=== PATIENT | female | born 1960 | race Caucasian/White ===

== ENCOUNTER 2018-08-19 11:53 | Inpatient (IN) | payer MEDICARE, MEDICAID ==
[2018-08-19] MEDS ORDERED: Piperacillin/Tazobactam 4.5 GM VIAL ONE (12:56)
[2018-08-19 12:59] LABS: #Lymphocytes 1.4 thou/uL (1.20-3.40); #Monocytes 0.9 thou/uL (0.11-0.59); #Neutrophils 10.9 thou/uL (1.40-6.50); %Basophils 0.2 % (0.0-1.0); %Eosinophils 0.2 % (0.0-10.0); %Lymphocytes 10.7 % (21.0-51.0); %Monocytes 6.6 % (0.0-10.0); %Neutrophils 82.3 % (42.0-75.0); Hemoglobin 14.4 g/dL (12.0-16.0); Mean Corpuscular HGB CONC 31.8 g/dL (32.0-36.0); Mean Corpuscular Hemoglobin 29.7 pg (27.0-31.0); Mean Corpuscular Volume 93.4 fL (78.0-98.0); Mean Platelet Volume 9.3 fL (7.4-10.4); Platelet Count 214 thou/uL (130-400); RBC Distribution Width 12.2 % (11.5-14.5); Red Blood Cell (RBC) Count 4.86 mill/uL (4.20-5.40); White Blood Cell (WBC) Count 13.2 thou/uL (4.8-10.8)
[2018-08-19 13:19] LABS: ALT (SGPT) 19 U/L (8-55); AST (SGOT) 34 U/L (5-34); Albumin 3.8 g/dL (3.5-5.0); Alkaline Phosphatase 126 U/L (40-150); Anion Gap 17 mmol/L (10-20); BUN (Urea Nitrogen) 14 mg/dL (9.8-20.1); Bilirubin, Total 0.7 mg/dL (0.2-1.2); Calc. Creatinine Clearance 0 mL/min (70-130); Calcium 10.1 mg/dL (7.8-10.44); Carbon Dioxide 27 mmol/L (22-29); Chloride 98 mmol/L (98-107); Estimated GFR-MDRD 84; Globulin 3.4 g/dL (2.4-3.5); Glucose 106 mg/dL (70-105); Potassium 4.3 mmol/L (3.5-5.1); Protein, Total 7.2 g/dL (6.0-8.3); Sodium 138 mmol/L (136-145)
[2018-08-19 13:40] LABS: Bilirubin Small (Negative); Blood, Urine Negative (Negative); Clarity CLOUDY (Clear); Glucose, Urine (Dipstick) Negative (Negative); Leukocyte Small (Negative); Nitrite Negative (Negative); Protein, Urine (Dipstick) 30 mg/dL (Neg-Trace); Specific Gravity, Urine 1.027 (1.002-1.036)
[2018-08-19 13:42] LABS: RBC/HPF 0-3 HPF (0-3)
[2018-08-19 13:44] LABS: Pathc Cast-AUWi Flag 10.46 (0-2.49)
[2018-08-19] MEDS ORDERED: methylPREDNISolone Sod Succ/PF 125 MG/2 ML VIAL ONE ×2 (13:46→13:58)
[2018-08-19] MEDS ORDERED: Water For Inject, Bacteriostat 30 ML ONE (13:46)
[2018-08-19 13:50] LABS: Bacteria/HPF 2+ HPF (None Seen); Hyaline Casts/LPF 4-6 HYALINE CAST LPF (0-3 Hyaline); Manual Microscopic Reviewed? No Path Casts Seen; Renal Epithelial None Seen HPF (0-3); Transitional Epithelial 0-3 HPF (0-3)
[2018-08-19] MEDS ORDERED: Zolpidem Tartrate 5 MG TAB PO PRN (14:16)
[2018-08-19] MEDS ORDERED: Ondansetron ODT 4 MG TAB PO PRN (14:16)
[2018-08-19] MEDS ORDERED: Acetaminophen 325 MG TAB PO PRN (14:16)
--- NOTE | 2018-08-19 14:26 | RAD ---
PORTABLE CHEST ONE VIEW: 08/19/2018 12:32 p.m. HISTORY: Pneumonia. Shortness of breath. Fever. FINDINGS: The heart size is normal. There is elevation of the right hemidiaphragm. Alveolar opacities in the lingula. No pneumothoraces or pleural effusions are seen. IMPRESSION: Left-sided pneumonia. POS: OFF
--- NOTE | 2018-08-19 15:16 | HP ---
PRIMARY CARE PROVIDER: Mike Espino MD [facility]. HISTORY OF PRESENT ILLNESS: The patient has been sick about 5 days, shortness of breath, severe coughing spells. Actually, she has had no fever or chills. No hemoptysis. In evaluation as an outpatient, the patient was noted to have O2 saturations in the 80s, was referred to the hospital. She was seen and treated with IV antibiotics, referred to the [facility]. PAST MEDICAL HISTORY: Her past medical history is pertinent for asthma, hypertension, and depression. 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 She subsequently had a right hemiplegia. She has had esophageal strictures, has had 5 EGDs with dilatations. She had gastric bypass in the past. CURRENT MEDICATIONS: [facility]; 1. Fluticasone nasal spray 2 sprays once a day. 2. Lisinopril 20 mg once a day. 3. ProAir HFA 90 mcg 2 puffs p.r.n. 4. Ranitidine 150 mg p.o. b.i.d. 5. Symbicort 160/4.5 two puffs b.i.d. 6. Duloxetine 60 mg at night. 7. Coenzyme Q10 daily. 8. Albuterol 2.5 mg/3 mL nebs 3 times a day p.r.n. 9. Aspirin 81 mg a day. 10. Multiple gqti-htf-mfxhera medications. ALLERGIES LISTED: Cephalosporins, fluticasone, and Sudafed. FAMILY HISTORY: Multiple members with hypertension. Her father had coronary artery disease. SOCIAL HISTORY: She is single, has a twin. Full code status. Her sister, Kristy is at the bedside, she is a responsible constitution party at this time. She has never smoked or used alcohol or illicit drug. REVIEW OF SYSTEMS: GENERAL: She gets dizzy with upward gaze. EAR, NOSE, AND THROAT: She is deaf in the left ear. No drainage from that ear. No drainage from her nose. She has had trouble swallowing in the past and has had multiple EGDs. EYES: She is blind in the right eye. She has a scarring over the left pupil. Minimal vision. CARDIAC: No chest pain, orthopnea, or paroxysmal nocturnal dyspnea. RESPIRATIONS: Shortness of breath, cough, and minimally productive of foamy sputum. No blood. History of asthma and wheezing. GASTROINTESTINAL: No nausea, vomiting, or abdominal pain. Had diarrhea yesterday, none today. No blood in her stools. GENITOURINARY: No hematuria or dysuria. MUSCULOSKELETAL: No pain or swelling in her arms or legs. 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 PSYCHIATRIC: History of anxiety and depression. SKIN: No bruising, bleeding, or rash. HEME/LYMPH: No tender or swollen lymph nodes in the axilla, inguinal, or cervical area. PHYSICAL EXAMINATION: GENERAL: She is alert, oriented, and cooperative. VITAL SIGNS: Blood pressure 113/62, respirations 24 to 26 with mild tachypnea, pulse was 100 to 110 and regular, temperature 98.2, and pulse ox 95 on 4 L of O2. HEENT: Examination of her head, eyes, ears, nose, and throat revealed scarring over the cornea of the left pupil. Neither pupil showed good reaction to light. Extraocular movements were conjugate. Scarring of the left tympanic membrane. No recognizable geographic signs. Oral mucous membranes are wet with good hygiene. NECK: No jugular venous distention, adenopathy, or thyromegaly. CHEST: Coarse breath sounds. Rhonchi over multiple menard. Left lower lobe rales. HEART: Regular rate and rhythm. First and second heart sounds are clear. No murmurs or gallops. ABDOMEN: Soft. Bowel sounds are normal. There is no hepatosplenomegaly. No mass. No rebound. EXTREMITIES: Reveal no cyanosis, clubbing, or edema. PULSES: Carotid, radial, and femoral and dorsalis pedis pulses intact. SKIN: Warm and dry without bruises or rash. HEME/LYMPH: No tender or swollen lymph nodes in the axilla, inguinal, or cervical area. NEUROLOGIC: Spastic hemiplegia on the right. Faces are nonsymmetric. She is markedly dysarthric. DIAGNOSTIC DATA: Chest x-ray, no cardiomegaly. Positive left lower lobe infiltrate, reviewed by me. EKG, regular sinus rhythm, poor R-wave progression across the precordial leads, reviewed by me. LABORATORY DATA: Metabolic profile; glucose 106, otherwise normal. Lactic acid is mildly elevated at 2.6. White cell count is elevated at 13.2 with an absolute neutrophilia, hemoglobin is 14.4, and platelet count is 214,000. ADMITTING DIAGNOSES: Left lower lobe pneumonia, acute respiratory failure with hypoxemia, asthma exacerbation, hypertension, and right spastic hemiplegia. PLAN: By history, the patient has had an MRSA pneumonia. I do not believe she looks that sick at present. She has been given vancomycin and Zosyn in the ER. She is on 4 L of O2, which we continued. I will transition her antibiotics to Zosyn plus azithromycin. We will give low dose of IV steroids. Continue DuoNebs. Substitute Dulera for the Symbicort. Cultures have been ordered. She is trying to produce a sputum, but there is just a scant amount of spit. Job ID: [id number]
[2018-08-19 18:08] VITALS: BMI 24.4
[2018-08-19] MEDS: Piperacillin/Tazobactam 3.375 GM in Sodium Chloride 0.9% 100 ML IVPB SCH ×2 (18:25→23:50)
[2018-08-19] MEDS: Azithromycin 500 MG in Sodium Chloride 0.9% 250 ML 250 ML IVPB SCH (18:25)
[2018-08-19] MEDS: Mometasone/Formoterol 120 PUFF INHALER INH SCH (19:00)
[2018-08-20] MEDS: Piperacillin/Tazobactam 3.375 GM in Sodium Chloride 0.9% 100 ML IVPB SCH ×4 (05:44→23:41)
[2018-08-20 05:45] LABS: #Lymphocytes 0.8 thou/uL (1.20-3.40); #Monocytes 0.2 thou/uL (0.11-0.59); #Neutrophils 5.3 thou/uL (1.40-6.50); %Eosinophils 0.1 % (0.0-10.0); %Lymphocytes 12.5 % (21.0-51.0); %Monocytes 2.5 % (0.0-10.0); %Neutrophils 84.9 % (42.0-75.0); Hemoglobin 12.8 g/dL (12.0-16.0); Mean Corpuscular HGB CONC 31.7 g/dL (32.0-36.0); Mean Corpuscular Hemoglobin 29.5 pg (27.0-31.0); Mean Platelet Volume 9.5 fL (7.4-10.4); Platelet Count 210 thou/uL (130-400); RBC Distribution Width 12.1 % (11.5-14.5); Red Blood Cell (RBC) Count 4.35 mill/uL (4.20-5.40); White Blood Cell (WBC) Count 6.3 thou/uL (4.8-10.8)
[2018-08-20 06:01] LABS: Anion Gap 12 mmol/L (10-20); BUN (Urea Nitrogen) 12 mg/dL (9.8-20.1); Calc. Creatinine Clearance 90 mL/min (70-130); Calcium 9.7 mg/dL (7.8-10.44); Carbon Dioxide 29 mmol/L (22-29); Chloride 103 mmol/L (98-107); Estimated GFR-MDRD Greater than 90; Glucose 149 mg/dL (70-105); Potassium 4.3 mmol/L (3.5-5.1); Sodium 140 mmol/L (136-145)
[2018-08-20] MEDS: Mometasone/Formoterol 120 PUFF INHALER INH SCH ×2 (07:06→19:29)
[2018-08-20] MEDS ORDERED: Guaifenesin DM 100-10/5 ML UDCUP PO PRN (07:41)
--- NOTE | 2018-08-20 07:50 | PDOC.PN ---
- Subjective Encounter Start Date: 08/20/18 Encounter Start Time: 07:48 Subjective: decreased cough, sob - Objective Resuscitation Status - Order Detail: 08/19/18 14:12 Resuscitation Status Routine Resuscitation Status: FULL: Full Resuscitation MAR Reviewed: Yes Vital Signs & Weight: Vital Signs (12 hours) Temp Pulse Resp BP Pulse Ox 08/20/18 07:09 60 18 94 L 08/20/18 07:08 97.3 F L 72 20 127/65 94 L 08/20/18 07:06 60 16 94 L 08/20/18 02:56 97.6 F 85 19 119/63 96 08/20/18 01:14 71 18 100 Weight Weight 130 lb 2 oz I&O: 08/19/18 08/20/18 08/21/18 06:59 06:59 06:59 Intake Total 580 Output Total 0 Balance 580 Result Diagrams: 08/20/18 05:16 08/20/18 05:16 Phys Exam - Physical Examination Neck: no JVD rhonchi, rales LLL Cardiovascular: RRR, no significant murmur Gastrointestinal: soft, positive bowel sounds Musculoskeletal: no edema Dx/Plan (1) PNA (pneumonia) Code(s): J18.9 - PNEUMONIA, UNSPECIFIED ORGANISM Status: Acute Qualifiers: Pneumonia type: due to Pneumococcus Laterality: left Lung location: lower lobe of lung Qualified Code(s): J13 - Pneumonia due to Streptococcus pneumoniae (2) Acute and chronic respiratory failure with hypoxia Code(s): J96.21 - ACUTE AND CHRONIC RESPIRATORY FAILURE WITH HYPOXIA Status: Acute (3) Asthma Code(s): J45.909 - UNSPECIFIED ASTHMA, UNCOMPLICATED Status: Chronic Qualifiers: Asthma severity: severe Asthma persistence: unspecified Asthma complication type: with acute exacerbation Qualified Code(s): J45.901 - Unspecified asthma with (acute) exacerbation (4) HTN (hypertension) Code(s): I10 - ESSENTIAL (PRIMARY) HYPERTENSION Status: Chronic Qualifiers: Hypertension type: essential hypertension Qualified Code(s): I10 - Essential (primary) hypertension (5) Lactic acidosis Code(s): E87.2 - ACIDOSIS Status: Resolved (6) Hemiplegia affecting right dominant side Code(s): G81.91 - HEMIPLEGIA, UNSPECIFIED AFFECTING RIGHT DOMINANT SIDE Status : Chronic Qualifiers: Hemiplegia type: spastic Hemiplegia etiology: late effect of cerebrovascular disease Cerebrovascular disease type: unspecified Qualified Code(s): I69.951 - Hemiplegia and hemiparesis following unspecified cerebrovascular disease affecting right dominant side - Plan cont zosyn, zithromycin -: cont iv steroids, nebs, LABA -: cont O2 * .
[2018-08-20] MEDS ORDERED: Non-Formulary Item 1 EACH (Ranitidine Hcl [Ranitidine Hcl] 150 MG) PO SCH (09:00)
[2018-08-20] MEDS ORDERED: ASCORBIC ACID 500 MG PO SCH (09:00)
[2018-08-20] MEDS ORDERED: UBIDECARENONE 400 MG PO SCH (09:00)
[2018-08-20] MEDS ORDERED: Fluticasone Propionate Nasal Spray 16 gm Bottle NASAL SCH (09:00)
[2018-08-20] MEDS ORDERED: SYSTANE 3.5 GM TUBE L EYE SCH (09:00)
[2018-08-20] MEDS ORDERED: [UNRECOGNIZED DRUG - OTHER] PO SCH (09:00)
[2018-08-20] MEDS ORDERED: Non-Formulary Item 1 EACH (Cyanocobalamin (Vitamin B-12) [Vitamin B12] 2,500 MCG) PO SCH (09:00)
[2018-08-20] MEDS: Ascorbic Acid 500 mg Chewable Tablet PO SCH (09:16)
[2018-08-20] MEDS: Cyanocobalamin (Vitamin B-12) 1,000 MCG TAB PO SCH (09:16)
[2018-08-20] MEDS: Enoxaparin Sodium 40 MG/0.4 ML SYRINGE SC SCH (09:17)
[2018-08-20] MEDS: Famotidine 20 MG TAB PO SCH ×2 (09:18→20:41)
[2018-08-20] MEDS: Fluticasone Propionate Nasal Spray 16 gm Bottle NASAL SCH (09:18)
[2018-08-20] MEDS: Lisinopril 20 MG TAB PO SCH (09:18)
[2018-08-20] MEDS: SYSTANE 3.5 GM TUBE L EYE SCH ×3 (09:19→20:44)
[2018-08-20] MEDS: Prenatal Vitamin 1 TAB PO SCH (09:19)
[2018-08-20] MEDS: Ubidecarenone 50 MG CAP PO SCH (09:32)
[2018-08-20] MEDS: Azithromycin 500 MG in Sodium Chloride 0.9% 250 ML 250 ML IVPB SCH (16:36)
[2018-08-20] MEDS: DULoxetine 60 MG CAP PO SCH (20:41)
[2018-08-21] MEDS: Piperacillin/Tazobactam 3.375 GM in Sodium Chloride 0.9% 100 ML IVPB SCH ×4 (05:18→22:55)
[2018-08-21] MEDS: Mometasone/Formoterol 120 PUFF INHALER INH SCH ×2 (08:14→19:09)
[2018-08-21] MEDS: Cyanocobalamin (Vitamin B-12) 1,000 MCG TAB PO SCH (09:20)
[2018-08-21] MEDS: Lisinopril 20 MG TAB PO SCH (09:20)
[2018-08-21] MEDS: Ascorbic Acid 500 mg Chewable Tablet PO SCH (09:20)
[2018-08-21] MEDS: Enoxaparin Sodium 40 MG/0.4 ML SYRINGE SC SCH (09:21)
[2018-08-21] MEDS: Famotidine 20 MG TAB PO SCH ×2 (09:21→19:50)
[2018-08-21] MEDS: Prenatal Vitamin 1 TAB PO SCH (09:21)
[2018-08-21] MEDS: SYSTANE 3.5 GM TUBE L EYE SCH ×3 (09:22→19:51)
[2018-08-21] MEDS: Ubidecarenone 50 MG CAP PO SCH (09:23)
[2018-08-21] MEDS: Fluticasone Propionate Nasal Spray 16 gm Bottle NASAL SCH (09:35)
--- NOTE | 2018-08-21 11:13 | PDOC.PN ---
- Subjective Encounter Start Date: 08/21/18 Encounter Start Time: 11:12 Subjective: no fewver, chills - Objective Resuscitation Status - Order Detail: 08/19/18 14:12 Resuscitation Status Routine Resuscitation Status: FULL: Full Resuscitation Vital Signs & Weight: Vital Signs (12 hours) Temp Pulse Resp BP BP Pulse Ox 08/21/18 09:20 121/78 08/21/18 08:14 62 20 96 08/21/18 08:00 97.7 F 60 18 121/70 93 L 08/21/18 07:34 97.7 F 60 18 121/70 93 L 08/21/18 04:00 97.8 F 78 20 117/65 92 L 08/21/18 01:10 60 20 92 L Weight Weight 130 lb 2 oz I&O: 08/20/18 08/21/18 08/22/18 06:59 06:59 06:59 Intake Total 580 1950 Output Total 0 Balance 580 1950 Result Diagrams: 08/20/18 05:16 08/20/18 05:16 Additional Labs: Accuchecks 08/21/18 04:31 POC Glucose 112 H Phys Exam - Physical Examination Neck: no JVD improved air movent some rales on left Cardiovascular: RRR, no significant murmur Gastrointestinal: soft, non-tender, positive bowel sounds Musculoskeletal: no edema Dx/Plan (1) PNA (pneumonia) Code(s): J18.9 - PNEUMONIA, UNSPECIFIED ORGANISM Status: Acute Qualifiers: Pneumonia type: due to Pneumococcus Laterality: left Lung location: lower lobe of lung Qualified Code(s): J13 - Pneumonia due to Streptococcus pneumoniae (2) Acute and chronic respiratory failure with hypoxia Code(s): J96.21 - ACUTE AND CHRONIC RESPIRATORY FAILURE WITH HYPOXIA Status: Acute (3) Asthma Code(s): J45.909 - UNSPECIFIED ASTHMA, UNCOMPLICATED Status: Chronic Qualifiers: Asthma severity: severe Asthma persistence: unspecified Asthma complication type: with acute exacerbation Qualified Code(s): J45.901 - Unspecified asthma with (acute) exacerbation (4) HTN (hypertension) Code(s): I10 - ESSENTIAL (PRIMARY) HYPERTENSION Status: Chronic Qualifiers: Hypertension type: essential hypertension Qualified Code(s): I10 - Essential (primary) hypertension (5) Lactic acidosis Code(s): E87.2 - ACIDOSIS Status: Resolved (6) Hemiplegia affecting right dominant side Code(s): G81.91 - HEMIPLEGIA, UNSPECIFIED AFFECTING RIGHT DOMINANT SIDE Status : Chronic Qualifiers: Hemiplegia type: spastic Hemiplegia etiology: late effect of cerebrovascular disease Cerebrovascular disease type: unspecified Qualified Code(s): I69.951 - Hemiplegia and hemiparesis following unspecified cerebrovascular disease affecting right dominant side - Plan cont improvement -: C&S neg- cont current iv antibx -: cont nebs, LABA, steroids * .
[2018-08-21] MEDS: Azithromycin 250 MG TAB PO SCH (16:22)
[2018-08-21] MEDS: DULoxetine 60 MG CAP PO SCH (19:50)
[2018-08-22] MEDS: Piperacillin/Tazobactam 3.375 GM in Sodium Chloride 0.9% 100 ML IVPB SCH ×4 (05:29→23:05)
[2018-08-22] MEDS: Mometasone/Formoterol 120 PUFF INHALER INH SCH ×2 (07:24→19:46)
[2018-08-22] MEDS: Ascorbic Acid 500 mg Chewable Tablet PO SCH (09:13)
[2018-08-22] MEDS: Famotidine 20 MG TAB PO SCH ×2 (09:13→20:21)
[2018-08-22] MEDS: Fluticasone Propionate Nasal Spray 16 gm Bottle NASAL SCH (09:13)
[2018-08-22] MEDS: Ubidecarenone 50 MG CAP PO SCH (09:13)
[2018-08-22] MEDS: Prenatal Vitamin 1 TAB PO SCH (09:13)
[2018-08-22] MEDS: Cyanocobalamin (Vitamin B-12) 1,000 MCG TAB PO SCH (09:14)
[2018-08-22] MEDS: Lisinopril 20 MG TAB PO SCH (09:15)
[2018-08-22] MEDS: SYSTANE 3.5 GM TUBE L EYE SCH ×3 (09:15→20:24)
[2018-08-22] MEDS: Enoxaparin Sodium 40 MG/0.4 ML SYRINGE SC SCH (09:16)
--- NOTE | 2018-08-22 11:37 | PDOC.PN ---
- Subjective Encounter Start Date: 08/22/18 Encounter Start Time: 11:35 Subjective: cough , sob cont to improve - Objective Resuscitation Status - Order Detail: 08/19/18 14:12 Resuscitation Status Routine Resuscitation Status: FULL: Full Resuscitation MAR Reviewed: Yes Vital Signs & Weight: Vital Signs (12 hours) Temp Pulse Resp BP BP Pulse Ox 08/22/18 10:57 98.2 F 66 16 143/83 H 97 08/22/18 09:15 155/70 H 08/22/18 07:32 98.4 F 63 20 155/70 H 99 08/22/18 07:27 69 18 95 08/22/18 07:24 69 18 95 Weight Weight 130 lb 2 oz I&O: 08/21/18 08/22/18 08/23/18 06:59 06:59 06:59 Intake Total 1950 1400 Balance 1950 1400 Result Diagrams: 08/20/18 05:16 08/20/18 05:16 Phys Exam - Physical Examination Neck: no JVD rhochi scattered, minimal rales LLL Cardiovascular: RRR, no significant murmur Gastrointestinal: soft, positive bowel sounds Musculoskeletal: no edema Dx/Plan (1) PNA (pneumonia) Code(s): J18.9 - PNEUMONIA, UNSPECIFIED ORGANISM Status: Acute Qualifiers: Pneumonia type: due to Pneumococcus Laterality: left Lung location: lower lobe of lung Qualified Code(s): J13 - Pneumonia due to Streptococcus pneumoniae (2) Acute and chronic respiratory failure with hypoxia Code(s): J96.21 - ACUTE AND CHRONIC RESPIRATORY FAILURE WITH HYPOXIA Status: Acute (3) Asthma Code(s): J45.909 - UNSPECIFIED ASTHMA, UNCOMPLICATED Status: Chronic Qualifiers: Asthma severity: severe Asthma persistence: unspecified Asthma complication type: with acute exacerbation Qualified Code(s): J45.901 - Unspecified asthma with (acute) exacerbation (4) HTN (hypertension) Code(s): I10 - ESSENTIAL (PRIMARY) HYPERTENSION Status: Chronic Qualifiers: Hypertension type: essential hypertension Qualified Code(s): I10 - Essential (primary) hypertension (5) Lactic acidosis Code(s): E87.2 - ACIDOSIS Status: Resolved (6) Hemiplegia affecting right dominant side Code(s): G81.91 - HEMIPLEGIA, UNSPECIFIED AFFECTING RIGHT DOMINANT SIDE Status : Chronic Qualifiers: Hemiplegia type: spastic Hemiplegia etiology: late effect of cerebrovascular disease Cerebrovascular disease type: unspecified Qualified Code(s): I69.951 - Hemiplegia and hemiparesis following unspecified cerebrovascular disease affecting right dominant side - Plan cont iv anti bx, nebs, LABA, etc -: hopefully back to NH in 1-2 days * .
[2018-08-22] MEDS: Azithromycin 250 MG TAB PO SCH (16:29)
[2018-08-22] MEDS: DULoxetine 60 MG CAP PO SCH (20:21)
[2018-08-23] MEDS: Piperacillin/Tazobactam 3.375 GM in Sodium Chloride 0.9% 100 ML IVPB SCH ×4 (05:08→23:34)
[2018-08-23] MEDS: Mometasone/Formoterol 120 PUFF INHALER INH SCH ×2 (07:06→19:52)
[2018-08-23] MEDS: Ascorbic Acid 500 mg Chewable Tablet PO SCH (08:05)
[2018-08-23] MEDS: Famotidine 20 MG TAB PO SCH ×2 (08:05→21:15)
[2018-08-23] MEDS: Lisinopril 20 MG TAB PO SCH (08:05)
[2018-08-23] MEDS: Prenatal Vitamin 1 TAB PO SCH (08:05)
[2018-08-23] MEDS: Ubidecarenone 50 MG CAP PO SCH (08:06)
[2018-08-23] MEDS: Cyanocobalamin (Vitamin B-12) 1,000 MCG TAB PO SCH (08:08)
[2018-08-23] MEDS: Enoxaparin Sodium 40 MG/0.4 ML SYRINGE SC SCH (08:08)
[2018-08-23] MEDS: SYSTANE 3.5 GM TUBE L EYE SCH ×3 (08:09→21:15)
[2018-08-23] MEDS: Fluticasone Propionate Nasal Spray 16 gm Bottle NASAL SCH (08:09)
[2018-08-23 08:48] LABS: #Eosinphils 0.1 thou/uL (0.0-0.7); #Lymphocytes 1.1 thou/uL (1.20-3.40); #Monocytes 0.6 thou/uL (0.11-0.59); #Neutrophils 8.9 thou/uL (1.40-6.50); %Eosinophils 0.5 % (0.0-10.0); %Lymphocytes 9.9 % (21.0-51.0); %Monocytes 5.2 % (0.0-10.0); %Neutrophils 84.4 % (42.0-75.0); Hemoglobin 14.9 g/dL (12.0-16.0); Mean Corpuscular HGB CONC 31.2 g/dL (32.0-36.0); Mean Corpuscular Hemoglobin 29.1 pg (27.0-31.0); Mean Corpuscular Volume 93.1 fL (78.0-98.0); Mean Platelet Volume 9.3 fL (7.4-10.4); Platelet Count 245 thou/uL (130-400); RBC Distribution Width 12.2 % (11.5-14.5); Red Blood Cell (RBC) Count 5.11 mill/uL (4.20-5.40); White Blood Cell (WBC) Count 10.6 thou/uL (4.8-10.8)
[2018-08-23 09:04] LABS: Anion Gap 15 mmol/L (10-20); BUN (Urea Nitrogen) 5 mg/dL (9.8-20.1); Calc. Creatinine Clearance 79 mL/min (70-130); Calcium 10.2 mg/dL (7.8-10.44); Carbon Dioxide 36 mmol/L (22-29); Chloride 92 mmol/L (98-107); Estimated GFR-MDRD 84; Glucose 168 mg/dL (70-105); Potassium 3.9 mmol/L (3.5-5.1); Sodium 139 mmol/L (136-145)
--- NOTE | 2018-08-23 15:00 | PDOC.PN ---
- Subjective Encounter Start Date: 08/23/18 (f/u asthma exacerbation) Encounter Start Time: 14:59 Subjective: pt reports feeling a little better, but not back to her normal self -: denies any n/v, reports bm's are every other day without straining -: denies any new sx - Objective Resuscitation Status - Order Detail: 08/19/18 14:12 Resuscitation Status Routine Resuscitation Status: FULL: Full Resuscitation Vital Signs & Weight: Vital Signs (12 hours) Temp Pulse Resp BP BP BP Pulse Ox 08/23/18 13:12 75 20 99 08/23/18 11:24 98.5 F 73 18 146/84 H 95 08/23/18 08:05 155/70 H 08/23/18 08:00 93 L 08/23/18 07:50 97.8 F 65 20 158/83 H 93 L 08/23/18 07:05 62 20 96 08/23/18 05:18 98 F 08/23/18 05:13 97.8 F 60 21 H 154/79 H 96 Weight Weight 130 lb 2 oz I&O: 08/22/18 08/23/18 08/24/18 06:59 06:59 06:59 Intake Total 1400 1070 480 Balance 1400 1070 480 Result Diagrams: 08/23/18 08:23 08/23/18 08:23 Additional Labs: Accuchecks 08/23/18 05:10 POC Glucose 142 H Phys Exam - Physical Examination Constitutional: NAD wheezing, scattered rhonchi. no audible rales Gastrointestinal: soft, non-tender, positive bowel sounds Musculoskeletal: no edema in LE Deviation from normal: some areas of ecchymosis along anterior RLE Dx/Plan (1) Acute and chronic respiratory failure with hypoxia Code(s): J96.21 - ACUTE AND CHRONIC RESPIRATORY FAILURE WITH HYPOXIA Status: Acute (2) PNA (pneumonia) Code(s): J18.9 - PNEUMONIA, UNSPECIFIED ORGANISM Status: Acute Qualifiers: Pneumonia type: due to Pneumococcus Laterality: left Lung location: lower lobe of lung Qualified Code(s): J13 - Pneumonia due to Streptococcus pneumoniae (3) Asthma Code(s): J45.909 - UNSPECIFIED ASTHMA, UNCOMPLICATED Status: Chronic Qualifiers: Asthma severity: severe Asthma persistence: unspecified Asthma complication type: with acute exacerbation Qualified Code(s): J45.901 - Unspecified asthma with (acute) exacerbation (4) HTN (hypertension) Code(s): I10 - ESSENTIAL (PRIMARY) HYPERTENSION Status: Chronic Qualifiers: Hypertension type: essential hypertension Qualified Code(s): I10 - Essential (primary) hypertension (5) Hemiplegia affecting right dominant side Code(s): G81.91 - HEMIPLEGIA, UNSPECIFIED AFFECTING RIGHT DOMINANT SIDE Status : Chronic Qualifiers: Hemiplegia type: spastic Hemiplegia etiology: late effect of cerebrovascular disease Cerebrovascular disease type: unspecified Qualified Code(s): I69.951 - Hemiplegia and hemiparesis following unspecified cerebrovascular disease affecting right dominant side (6) Lactic acidosis Code(s): E87.2 - ACIDOSIS Status: Resolved - Plan * Reviewed prior CXR and pt with distended loops of bowel - she denies any abd sx. However, this is out of proportion to what I'd anticipate - repeat both CXR and check KUB to eval for obstruction. * continue azithromycin - will request stop after tonights dose for 5 days of tx completed. Will continue zosyn for now * continue nebs and steroids. Anticipate that solumedrol can be changed to prednisone tomorrow * * continue all other meds as ordered * dvt prophy - lovenox * gi prophy - not indicated * code status full * reviewed plan of care with patient/sister, no questions or further needs at end of eval * * reviewed labs - alkalosis - may be secondary to poor PO intake. will gently hydrate with IVF and recheck in AM * * 16:36 - reviewed xray with Radiology -not obstructed, stool through colon. Discussed withpatient and sister - will start colace bid and miralax bid with goal of clearing out colon and gas and monitoring for change. Anticipate this will help to improve respiratory status.
[2018-08-23] MEDS ORDERED: Sodium Chloride 0.9% 1,000 ML IV SCH (15:15)
--- NOTE | 2018-08-23 16:27 | RAD ---
RADIOGRAPH CHEST 1 VIEW: Date: 08/23/18 Time: 1: 44 p.m. HISTORY: 57-year-old female with pneumonia. Followup. COMPARISON: 08/19/18 FINDINGS: Lung volumes are again hypoinflated. The patchy alveolar infiltrate at the left lower lung zone has d ecreased in size. A small amount remains at the left lower lobe. The rest of the visualized lung fiel ds are clear. No cardiomegaly. Large amount of gas throughout multiple bowel loops in the upper abdo men, similar to prior study. No pneumothorax. IMPRESSION: Interval improvement in left basilar pneumonia. CESAR [] POS: [facility]
--- NOTE | 2018-08-23 16:51 | RAD ---
ABDOMEN ONE VIEW: 08/23/18 HISTORY: Abdominal pain and distention. FINDINGS: Gaseous distention of the colon. Large amount of stool over the rectum. Nondilated gas filled loops o f small bowel throughout the abdomen. Metallic clips overlie the GE junction. IMPRESSION: Constipation. No evidence of small bowel obstruction. POS: [facility]
[2018-08-23] MEDS: Azithromycin 250 MG TAB PO SCH (17:12)
--- NOTE | 2018-08-23 20:46 | EKG ---
Test Reason : Blood Pressure : / mmHG Vent. Rate : 098 BPM Atrial Rate : 468 BPM P-R Int : 000 ms QRS Dur : 072 ms QT Int : 336 ms P-R-T Axes : 000 -20 -06 degrees QTc Int : 428 ms Accelerated Junctional rhythm Septal infarct , age undetermined Abnormal ECG Confirmed by SANDHYA SCOTT D.O. ([id number]), news assignment editor AKHIL MCKEON ([id number]) on 08/23/2018 8:45:43 PM Referred By: Confirmed By:SANDHYA SCOTT D.O.
[2018-08-23] MEDS: DULoxetine 60 MG CAP PO SCH (21:14)
[2018-08-23] MEDS: Docusate 100 MG CAP PO SCH (21:15)
[2018-08-23] MEDS: Polyethylene Glycol 3350 17 GM Packet PO SCH (21:15)
[2018-08-24] MEDS: Piperacillin/Tazobactam 3.375 GM in Sodium Chloride 0.9% 100 ML IVPB SCH ×4 (05:05→23:37)
[2018-08-24] MEDS: Mometasone/Formoterol 120 PUFF INHALER INH SCH ×2 (08:00→18:57)
[2018-08-24] MEDS: Cyanocobalamin (Vitamin B-12) 1,000 MCG TAB PO SCH (08:52)
[2018-08-24] MEDS: Ascorbic Acid 500 mg Chewable Tablet PO SCH (08:52)
[2018-08-24] MEDS: Famotidine 20 MG TAB PO SCH ×2 (08:52→20:12)
[2018-08-24] MEDS: Lisinopril 20 MG TAB PO SCH (08:53)
[2018-08-24] MEDS: Docusate 100 MG CAP PO SCH ×2 (08:57→20:12)
[2018-08-24] MEDS: Enoxaparin Sodium 40 MG/0.4 ML SYRINGE SC SCH (08:57)
[2018-08-24] MEDS: Ubidecarenone 50 MG CAP PO SCH (08:57)
[2018-08-24] MEDS: Polyethylene Glycol 3350 17 GM Packet PO SCH ×2 (08:57→20:12)
[2018-08-24] MEDS: Fluticasone Propionate Nasal Spray 16 gm Bottle NASAL SCH (08:58)
[2018-08-24] MEDS: SYSTANE 3.5 GM TUBE L EYE SCH ×3 (08:58→20:11)
[2018-08-24 09:26] LABS: Anion Gap 17 mmol/L (10-20); BUN (Urea Nitrogen) 6 mg/dL (9.8-20.1); Calc. Creatinine Clearance 77 mL/min (70-130); Calcium 9.7 mg/dL (7.8-10.44); Carbon Dioxide 36 mmol/L (22-29); Chloride 92 mmol/L (98-107); Estimated GFR-MDRD 82; Glucose 154 mg/dL (70-105); Potassium 4.2 mmol/L (3.5-5.1); Sodium 141 mmol/L (136-145)
[2018-08-24] MEDS: Prenatal Vitamin 1 TAB PO SCH (11:58)
--- NOTE | 2018-08-24 16:08 | PDOC.PN ---
- Subjective Encounter Start Date: 08/24/18 (f/u dyspnea) Encounter Start Time: 16:06 Subjective: Pt reports breathing is a little better. She is off oxygen. -: No BM, denies any pain. - Objective Resuscitation Status - Order Detail: 08/19/18 14:12 Resuscitation Status Routine Resuscitation Status: FULL: Full Resuscitation Vital Signs & Weight: Vital Signs (12 hours) Temp Pulse Resp BP BP BP Pulse Ox 08/24/18 13:14 97.8 F 73 18 155/79 H 93 L 08/24/18 12:41 72 15 08/24/18 08:53 145/82 H 08/24/18 08:00 98 F 80 20 147/51 H 93 L 08/24/18 07:59 95 08/24/18 07:57 62 15 95 08/24/18 05:42 97.8 F 62 18 157/81 H 93 L Weight Weight 130 lb 2 oz I&O: 08/23/18 08/24/18 08/25/18 06:59 06:59 06:59 Intake Total 1070 1820 Output Total 750 Balance 1070 1070 Result Diagrams: 08/23/18 08:23 08/24/18 08:34 Additional Labs: Accuchecks 08/23/18 20:56 POC Glucose 162 H Phys Exam - Physical Examination Constitutional: NAD scattered rhonchi, improved air movement today. No audible rales Cardiovascular: RRR, no significant murmur Gastrointestinal: soft, non-tender, positive bowel sounds Musculoskeletal: no edema Psychiatric: normal affect Dx/Plan (1) Acute and chronic respiratory failure with hypoxia Code(s): J96.21 - ACUTE AND CHRONIC RESPIRATORY FAILURE WITH HYPOXIA Status: Acute (2) PNA (pneumonia) Code(s): J18.9 - PNEUMONIA, UNSPECIFIED ORGANISM Status: Acute Qualifiers: Pneumonia type: due to Pneumococcus Laterality: left Lung location: lower lobe of lung Qualified Code(s): J13 - Pneumonia due to Streptococcus pneumoniae (3) Asthma Code(s): J45.909 - UNSPECIFIED ASTHMA, UNCOMPLICATED Status: Chronic Qualifiers: Asthma severity: severe Asthma persistence: unspecified Asthma complication type: with acute exacerbation Qualified Code(s): J45.901 - Unspecified asthma with (acute) exacerbation (4) HTN (hypertension) Code(s): I10 - ESSENTIAL (PRIMARY) HYPERTENSION Status: Chronic Qualifiers: Hypertension type: essential hypertension Qualified Code(s): I10 - Essential (primary) hypertension (5) Hemiplegia affecting right dominant side Code(s): G81.91 - HEMIPLEGIA, UNSPECIFIED AFFECTING RIGHT DOMINANT SIDE Status : Chronic Qualifiers: Hemiplegia type: spastic Hemiplegia etiology: late effect of cerebrovascular disease Cerebrovascular disease type: unspecified Qualified Code(s): I69.951 - Hemiplegia and hemiparesis following unspecified cerebrovascular disease affecting right dominant side (6) Alkalosis, metabolic Code(s): E87.3 - ALKALOSIS Status: Acute - Plan * * Reviewed xrays yesterday and pt with distended loops of bowel but not signs of obstruction. Also with stool through colon. Plan is to start miralax and colace to relieve constipation and see if this will help relieve flatus. * OOB to chair, PT consult placed * Antibiotics - completed Azithromycin 500 mg daily x 5 days. Is on day 6 of zosyn - anticipate this can be d/c tomorrow * continue nebs and steroids - change to prednisone starting tomorrow * * uncertain etiology of alkalosis - check with pharmacist to see if this may be medication related. Order urine chloride. No change with almost 1L of NS by IV * * continue all other meds as ordered * * dvt prophy - lovenox * gi prophy - not indicated * code status full * reviewed plan of care with patient/Mom, no questions or further needs at end of eval * *
[2018-08-24] MEDS: DULoxetine 60 MG CAP PO SCH (20:12)
[2018-08-25] MEDS: Piperacillin/Tazobactam 3.375 GM in Sodium Chloride 0.9% 100 ML IVPB SCH ×2 (05:11→13:40)
[2018-08-25] MEDS: Mometasone/Formoterol 120 PUFF INHALER INH SCH (06:31)
[2018-08-25] MEDS ORDERED: predniSONE 20 MG TAB PO SCH (08:00)
[2018-08-25] MEDS: Famotidine 20 MG TAB PO SCH (09:29)
[2018-08-25] MEDS: Ascorbic Acid 500 mg Chewable Tablet PO SCH (09:29)
[2018-08-25] MEDS: Polyethylene Glycol 3350 17 GM Packet PO SCH (09:29)
[2018-08-25] MEDS: Cyanocobalamin (Vitamin B-12) 1,000 MCG TAB PO SCH (09:30)
[2018-08-25] MEDS: Docusate 100 MG CAP PO SCH (09:31)
[2018-08-25] MEDS: Ubidecarenone 50 MG CAP PO SCH (09:31)
[2018-08-25] MEDS: Prenatal Vitamin 1 TAB PO SCH (09:31)
[2018-08-25] MEDS: Lisinopril 20 MG TAB PO SCH (09:31)
[2018-08-25] MEDS: Enoxaparin Sodium 40 MG/0.4 ML SYRINGE SC SCH (09:31)
[2018-08-25] MEDS: SYSTANE 3.5 GM TUBE L EYE SCH ×2 (09:32→16:54)
[2018-08-25] MEDS: Fluticasone Propionate Nasal Spray 16 gm Bottle NASAL SCH (09:32)
[2018-08-25 09:48] LABS: ALT (SGPT) 46 U/L (8-55); AST (SGOT) 40 U/L (5-34); Albumin 3.4 g/dL (3.5-5.0); Alkaline Phosphatase 74 U/L (40-150); Anion Gap 19 mmol/L (10-20); BUN (Urea Nitrogen) 7 mg/dL (9.8-20.1); Bilirubin, Total 0.3 mg/dL (0.2-1.2); Calc. Creatinine Clearance 83 mL/min (70-130); Calcium 9.5 mg/dL (7.8-10.44); Carbon Dioxide 31 mmol/L (22-29); Chloride 96 mmol/L (98-107); Estimated GFR-MDRD 89; Globulin 3.2 g/dL (2.4-3.5); Glucose 78 mg/dL (70-105); Potassium 4.5 mmol/L (3.5-5.1); Protein, Total 6.6 g/dL (6.0-8.3); Sodium 141 mmol/L (136-145)
--- NOTE | 2018-08-25 10:05 | PDOC.PN ---
- Subjective Encounter Start Date: 08/25/18 Encounter Start Time: 11:00 Subjective: Patient doing better. No SOB. No fever. - Objective Resuscitation Status - Order Detail: 08/19/18 14:12 Resuscitation Status Routine Resuscitation Status: FULL: Full Resuscitation MAR Reviewed: Yes Vital Signs & Weight: Vital Signs (12 hours) Temp Pulse Resp BP BP BP Pulse Ox 08/25/18 09:31 143/85 H 08/25/18 07:20 97.6 F 78 20 143/85 H 91 L 08/25/18 06:31 69 16 94 L 08/25/18 06:28 69 16 94 L 08/25/18 05:38 98.2 F 65 21 H 157/84 H 94 L 08/25/18 00:17 65 16 08/25/18 00:15 98 F 65 21 H 160/83 H 94 L 08/24/18 23:25 98 F 65 21 H 160/83 H 94 L Weight Weight 130 lb 2 oz I&O: 08/24/18 08/25/18 08/26/18 06:59 06:59 06:59 Intake Total 1820 570 Output Total 750 Balance 1070 570 Result Diagrams: 08/23/18 08:23 08/25/18 09:02 Phys Exam - Physical Examination Constitutional: NAD HEENT: moist MMs Respiratory: no wheezing, no rales, no rhonchi Cardiovascular: RRR Gastrointestinal: soft, positive bowel sounds right sided hemiplegia and facial droop, slurred speech, no changes Psychiatric: normal affect Dx/Plan (1) Acute and chronic respiratory failure with hypoxia Code(s): J96.21 - ACUTE AND CHRONIC RESPIRATORY FAILURE WITH HYPOXIA Status: Acute (2) PNA (pneumonia) Code(s): J18.9 - PNEUMONIA, UNSPECIFIED ORGANISM Status: Acute Qualifiers: Pneumonia type: due to Pneumococcus Laterality: left Lung location: lower lobe of lung Qualified Code(s): J13 - Pneumonia due to Streptococcus pneumoniae (3) Asthma Code(s): J45.909 - UNSPECIFIED ASTHMA, UNCOMPLICATED Status: Chronic Qualifiers: Asthma severity: severe Asthma persistence: unspecified Asthma complication type: with acute exacerbation Qualified Code(s): J45.901 - Unspecified asthma with (acute) exacerbation (4) HTN (hypertension) Code(s): I10 - ESSENTIAL (PRIMARY) HYPERTENSION Status: Chronic Qualifiers: Hypertension type: essential hypertension Qualified Code(s): I10 - Essential (primary) hypertension (5) Hemiplegia affecting right dominant side Code(s): G81.91 - HEMIPLEGIA, UNSPECIFIED AFFECTING RIGHT DOMINANT SIDE Status : Chronic Qualifiers: Hemiplegia type: spastic Hemiplegia etiology: late effect of cerebrovascular disease Cerebrovascular disease type: unspecified Qualified Code(s): I69.951 - Hemiplegia and hemiparesis following unspecified cerebrovascular disease affecting right dominant side (6) Alkalosis, metabolic Code(s): E87.3 - ALKALOSIS Status: Acute - Plan cont current plan of care, continue antibiotics, PT/OT Can d/c antibiotics after today's dose. -: D/C back to intermediate. * . - Discharge Day Encounter end time: 11:30
[2018-08-25 10:51] VITALS: BP 134/78; TEMP 98.1
--- NOTE | 2018-08-26 03:51 | DIS ---
DATE OF ADMISSION: 08/19/2018 DATE OF DISCHARGE: 08/25/2018 PRIMARY CARE PHYSICIAN: Dr. Espino. REASON FOR ADMISSION: Pneumonia. DIAGNOSES AT DISCHARGE: 1. [id number] respiratory failure with hypoxia. 2. Acute bacterial pneumonia. 3. Asthma with exacerbation. 4. Hypertension. 5. Hemiplegia affecting the right side. PROCEDURES: 1. Chest x-ray showing left basilar pneumonia, improved on repeat. 2. Abdominal x-ray is showing constipation, but no evidence of small bowel obstruction. CONSULTATIONS: None. SUMMARY OF HOSPITAL COURSE: This is a 57-year-old white female, intermediate resident at 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 She came in with 5 days of shortness of breath and coughing. She was noted to have O2 saturation down in the 80s. In the emergency room, she was diagnosed with a pneumonia. She was put on Zosyn and vancomycin initially. This was changed to Zosyn and azithromycin along with IV steroids. The patient improved during hospitalization. She had improvement in her pneumonia. We were able to wean her off her oxygen and just use it as needed, and she had resolution of her shortness of breath. Her steroids were converted to oral steroids that are now being discontinued. She did complete the azithromycin course and today is completing her 7th day of Zosyn, and so we will be stopping that as well. The patient is back to her baseline, is being discharged. DISCHARGE MANAGEMENT: Discharged back to [facility]. FOLLOWUP: Follow up with Dr. Espino as needed. ACTIVITY: As tolerated. DIET: Regular diet. INSTRUCTIONS: Oxygen as needed to keep O2 saturation above 92%. DISCHARGE MEDICATIONS: The patient is to resume all her previous medications. 1. Vitamin C 500 mg daily. 2. Vitamin B12 of 2500 mcg daily. 3. Cymbalta 60 mg at night. 4. Flonase 2 sprays each nostril daily. 5. Robitussin DM as needed. 6. Lisinopril 20 mg daily. 7. Systane nighttime eye ointment applied to eyes, left eye 3 times a day. 8. vitamin 1 tablet daily. 9. Ranitidine 150 mg twice a day. 10. Coenzyme Q10 of 400 mg daily. 11. Albuterol sulfate inhaler as needed. 12. Symbicort 160/4.5 two puffs twice a day. 13. Glucosamine chondroitin complex one tablet daily. 14. Children's Fiber Select Gummies two tablets as needed orally. Arranging the details of this discharge took 32 minutes. Job ID: [id number]
== END 2018-08-25 16:02 | DRG 193 ==
LOC: ERS 11:53 → 2NO 16:39 → T4-B 08-20 11:36
PROVIDERS: ADMIT Internal Medicine; ATTEND Internal Medicine
DX: J15.9 Unspecified bacterial pneumonia (principal); J96.21 Acute and chronic respiratory failure with hypoxia; J45.901 Unspecified asthma with (acute) exacerbation; I69.351 Hemiplegia and hemiparesis following cerebral infarction affecting right dominant side; E87.3 Alkalosis; E87.2 Acidosis; I10 Essential (primary) hypertension; F32.9 Major depressive disorder, single episode, unspecified; Z88.1 Allergy status to other antibiotic agents; Z88.8 Allergy status to other drugs, medicaments and biological substances; Z79.82 Long term (current) use of aspirin; Z79.899 Other long term (current) drug therapy
CPT/HCPCS: 36415; 36416; 71045; 74018; 80048; 80053; 81003; 81015; 82436; 83605; 85025; 87040; 87070; 87086; 87205; 93005; 94640; 94664; 96365; 96366; 96367; 96375; J0456; J1650; J2543; J2920; J2930; J3370; J7050; J7506; J7620

== ENCOUNTER 2018-12-17 12:01 | Outpatient (CLI) | payer MEDICARE, MEDICAID ==
--- NOTE | 2018-12-17 12:55 | RAD ---
CHEST PA AND LATERAL: HISTORY: Productive cough. COMPARISON: 08/23/2018 FINDINGS: There is continued elevation of the right hemidiaphragm. The heart size is normal. No focal areas o f consolidation, pneumothoraces, or pleural effusions seen. IMPRESSION: No acute process. POS: [facility]
== END 2018-12-17 12:02 | disposition home or self-care (01) ==
LOC: SCSRAD 12:01
PROVIDERS: ATTEND Family Medicine
DX: J45.21 Mild intermittent asthma with (acute) exacerbation (principal)
CPT/HCPCS: 71046

== ENCOUNTER 2019-03-26 13:58 | Outpatient (CLI) | payer MEDICARE, MEDICAID ==
--- NOTE | 2019-03-26 14:22 | RAD ---
2 views of the chest: 03/26/2019 COMPARISON: 12/17/2018 HISTORY: Shortness of breath FINDINGS: There is elevation of the right hemidiaphragm. The colon extends below the right hemidiaphr agm and there is mild gaseous distention of the colon, stable. Mild increased linear interstitial density noted. Postoperative clips are noted at the gastroesophageal region. No pneumothorax or pleur al fluid. No focal consolidation or alveolar edema. IMPRESSION: Chronic stable findings as detailed above. No focal consolidation or alveolar edema. Ther e is elevation of the right hemidiaphragm with colonic gaseous distention. If there are symptoms referable to this region, this could be better assessed with abdominal CT.
== END 2019-03-26 13:59 | disposition home or self-care (01) ==
LOC: RAD 13:58
PROVIDERS: ATTEND Internal Medicine
DX: R06.00 Dyspnea, unspecified (principal); J98.6 Disorders of diaphragm; K63.89 Other specified diseases of intestine; J98.4 Other disorders of lung; Z98.890 Other specified postprocedural states
CPT/HCPCS: 71046

== ENCOUNTER 2019-05-28 12:43 | Outpatient (CLI) | payer MEDICARE, MEDICAID ==
[2019-05-28 13:24] LABS: Actual Bicarbonate (HCO3a) 30.8 mEq/L (22-28); Analyzer IN Cardio OR; Base Excess (BEa) 4.5 mEq/L (-2.0 to +3.0); CO2 Tension 53.1 mmHg (35.0-45.0); Calcium, Ionized 1.21 mmol/L (1.12-1.30); Carboxyhemoglobin (COHb) 0.8 gm% (0.0-3.0); O2 Tension (PaO2) 72.7 mmHg (> 80.0); Potassium - ABG Lab 3.84 mmol/L (3.70-5.30); pH, Arterial 7.38 (7.35-7.45)
[2019-05-28 13:32] LABS: ALV-art Gradient 10.655 (0-20); Puncture Site RB
--- NOTE | 2019-05-29 13:25 | PFT ---
PATIENT HISTORY: HEIGHT: WEIGHT: SMOKER: HOW LONG: PACKS PER DAY: PRODUCTIVE COUGH: LUNG DISEASE: PHYSICIAN INTERPRETATION FINAL REPORT: Patient had good effort and cooperation. pH 7.38, PCO2 52, PO2 73 (95%) on room air. The pH is normal, PCO2 is elevated, the PO2 is statically reduced but corresponds to a normal saturation. IMPRESSION: Overall, these pulmonary function studies are consistent with chronic hypercapnic respiratory failure. Clinical correlation is required. 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
== END 2019-05-28 12:44 | disposition home or self-care (01) ==
LOC: CP 12:43
PROVIDERS: ATTEND Internal Medicine
DX: J45.909 Unspecified asthma, uncomplicated (principal); J98.4 Other disorders of lung; G47.33 Obstructive sleep apnea (adult) (pediatric); J98.6 Disorders of diaphragm
CPT/HCPCS: 82805

== ENCOUNTER 2019-08-20 20:30 | Outpatient (CLI) | payer MEDICAID, MEDICARE | END 2019-08-20 20:31 | disposition home or self-care (01) | LOC: SLEEPLAB 20:30 | PROVIDERS: ATTEND Family Medicine | DX: G47.33 Obstructive sleep apnea (adult) (pediatric) (principal); R53.83 Other fatigue; R51 Headache; R06.83 Snoring; E66.9 Obesity, unspecified; R35.1 Nocturia; I63.9 Cerebral infarction, unspecified; R06.89 Other abnormalities of breathing | CPT/HCPCS: 95811 ==

== ENCOUNTER 2022-08-12 09:38 | Inpatient (IN) | payer MEDICARE, OTHER ==
[2022-08-12] MEDS ORDERED: Albuterol 2.5 MG/0.5 ML NEB ONE (10:35)
[2022-08-12 10:46] LABS: Hemoglobin 12.7 g/dL (12.0-16.0); Mean Corpuscular HGB CONC 31.2 g/dL (32.0-36.0); Mean Corpuscular Hemoglobin 28.1 pg (27.0-31.0); Mean Corpuscular Volume 90.1 fl (78.0-98.0); Platelet Count 153 10x3/uL (130-400); RBC Distribution Width 13.1 % (11.5-14.5); Red Blood Cell (RBC) Count 4.54 mill/uL (4.20-5.40); White Blood Cell (WBC) Count 20.4 10x3/uL (4.8-10.8)
[2022-08-12 11:06] LABS: Bacteria/HPF 4+ HPF (None Seen); Bilirubin Negative (Negative); Blood, Urine Trace (Negative); Clarity Clear (Clear); Glucose, Urine (Dipstick) Normal (Negative); Ketone, Urine 20 mg/dL (Negative); Leukocyte 250 Leu/uL (Negative); Nitrite Negative (Negative); Protein, Urine (Dipstick) 50 mg/dL (Neg-Trace); Specific Gravity, Urine 1.019 (1.002-1.036); Squamous Epithelial 0-3 HPF (0-3); WBC/HPF 21-50 HPF (0-3)
[2022-08-12 11:08] LABS: ALT (SGPT) 19 U/L (8-55); AST (SGOT) 32 U/L (5-34); Alkaline Phosphatase 88 U/L (40-110); Anion Gap 13 mmol/L (10-20); BUN (Urea Nitrogen) 12 mg/dL (9.8-20.1); Bilirubin, Total 0.6 mg/dL (0.2-1.2); Calc. Creatinine Clearance 0 mL/min (70-130); Calcium 9.5 mg/dL (7.8-10.44); Carbon Dioxide 33 mmol/L (23-31); Chloride 93 mmol/L (98-107); Estimated GFR 101; Globulin 2.9 g/dL (2.4-3.5); Glucose 126 mg/dL (80-115); Lipase 8 U/L (8-78); Magnesium 2.1 mg/dL (1.6-2.6); Potassium 3.7 mmol/L (3.5-5.1); Protein, Total 6.9 g/dL (5.8-8.1); Sodium 135 mmol/L (136-145)
[2022-08-12 11:34] LABS: Band 8 % (5-11); Lymphocytes 2 % (21-51); MDiff Complete? YES; Metamyelocyte 1 % (0-0); Monocytes 2 % (0-10); Neutrophil 87 % (42-75); Platelet Morphology Comment Appears Adequate; RBC Morphology Normal
[2022-08-12] MEDS ORDERED: Levofloxacin 500 mg/D5W 100 ml Premix Bag ONE (11:49)
[2022-08-12] MEDS ORDERED: Oseltamivir 75 MG CAP PO SCH (12:15)
[2022-08-12] MEDS ORDERED: Ondansetron PF 4 MG/2 ML Vial IVP PRN (13:36)
[2022-08-12] MEDS ORDERED: Acetaminophen 325 MG TAB PO PRN (13:36)
[2022-08-12] MEDS ORDERED: Senokot S 8.6-50 MG TAB PO PRN (13:36)
[2022-08-12] MEDS ORDERED: Ondansetron ODT 4 MG TAB PO PRN (13:36)
[2022-08-12] MEDS ORDERED: Benzonatate 100 MG CAP PO PRN (13:42)
[2022-08-12] MEDS ORDERED: Benzonatate 100 MG CAP ONE (14:22)
[2022-08-12] MEDS: Dextrose 5 %-0.45 % NaCl 1,000 ML IV SCH (17:48)
[2022-08-12 20:58] VITALS: BMI 23.9
[2022-08-12] MEDS: Oseltamivir 75 MG CAP PO SCH (21:31)
[2022-08-12] MEDS: methylPREDNISolone Sod Succ 40 MG VIAL IVP SCH (21:31)
[2022-08-12] MEDS: Famotidine 20 MG TAB PO SCH (21:31)
[2022-08-13 04:34] LABS: #Lymphocytes 0.4 thou/uL (1.20-3.40); #Monocytes 0.3 thou/uL (0.11-0.59); #Neutrophils 13.9 thou/uL (1.40-6.50); %Eosinophils 0.2 % (0.0-10.0); %Lymphocytes 2.8 % (21.0-51.0); %Monocytes 2.2 % (0.0-10.0); %Neutrophils 94.8 % (42.0-75.0); Hemoglobin 12.1 g/dL (12.0-16.0); Mean Corpuscular HGB CONC 30.6 g/dL (32.0-36.0); Mean Corpuscular Hemoglobin 28.4 pg (27.0-31.0); Mean Corpuscular Volume 92.7 fl (78.0-98.0); Mean Platelet Volume 10.6 fL (7.4-10.4); Platelet Count 150 10x3/uL (130-400); RBC Distribution Width 13.1 % (11.5-14.5); Red Blood Cell (RBC) Count 4.27 mill/uL (4.20-5.40); White Blood Cell (WBC) Count 14.6 10x3/uL (4.8-10.8)
[2022-08-13 05:06] LABS: Anion Gap 12 mmol/L (10-20); BUN (Urea Nitrogen) 10 mg/dL (9.8-20.1); Calc. Creatinine Clearance 102 mL/min (70-130); Calcium 9.9 mg/dL (7.8-10.44); Carbon Dioxide 32 mmol/L (23-31); Chloride 97 mmol/L (98-107); Estimated GFR 104; Glucose 174 mg/dL (80-115); Potassium 3.4 mmol/L (3.5-5.1); Sodium 138 mmol/L (136-145)
[2022-08-13] MEDS: Dextrose 5 %-0.45 % NaCl 1,000 ML IV SCH ×2 (07:51→21:21)
[2022-08-13] MEDS ORDERED: Non-Formulary Item 1 EACH (Melatonin [Melatonin] 10 MG Tablet) PO PRN (08:37)
[2022-08-13] MEDS ORDERED: Ipratropium/Albuterol 3 ML NEB NEB PRN (08:37)
[2022-08-13] MEDS ORDERED: DULoxetine 60 MG CAP PO SCH (09:00)
[2022-08-13] MEDS ORDERED: Non-Formulary Item 1 EACH (Budesonide-Formoterol [Symbicort 160-4.5] 160 MG/4.5 MG Aer) INH SCH (09:00)
[2022-08-13] MEDS ORDERED: Lisinopril 20 MG TAB PO SCH (09:00)
[2022-08-13] MEDS: methylPREDNISolone Sod Succ 40 MG VIAL IVP SCH ×2 (11:01→21:20)
[2022-08-13] MEDS: Famotidine 20 MG TAB PO SCH ×2 (11:02→11:03)
[2022-08-13] MEDS: Oseltamivir 75 MG CAP PO SCH ×2 (11:02→21:20)
[2022-08-13] MEDS: Cyanocobalamin (Vitamin B-12) 1,000 MCG TAB PO SCH (11:02)
[2022-08-13] MEDS ORDERED: Potassium Chloride 20 MEQ in Premix Bag 1 BAG IVPB SCH (11:45)
[2022-08-13] MEDS: Mometasone 200 MCG/Formoterol 5 MCG 120 PUFF INHALER INH SCH (19:13)
[2022-08-13] MEDS: Amlodipine 5 MG TAB PO SCH (21:20)
[2022-08-13] MEDS: Montelukast Sodium 10 mg Tablet PO SCH (21:20)
[2022-08-13] MEDS: Lisinopril 10 MG TAB PO SCH (21:20)
[2022-08-13] MEDS: DULoxetine 20 MG CAP PO SCH (21:20)
[2022-08-14] MEDS: GUAIFENESIN SF SOLN 200 MG/10 ML UDCUP PO PRN ×2 (00:29→22:15)
[2022-08-14 04:49] LABS: #Basophils 0.1 thou/uL (0.0-0.2); #Lymphocytes 0.3 thou/uL (1.20-3.40); #Monocytes 0.4 thou/uL (0.11-0.59); #Neutrophils 10.1 thou/uL (1.40-6.50); %Basophils 1.3 % (0.0-1.0); %Eosinophils 0.1 % (0.0-10.0); %Lymphocytes 3.1 % (21.0-51.0); %Monocytes 3.5 % (0.0-10.0); %Neutrophils 92.1 % (42.0-75.0); Mean Corpuscular HGB CONC 30.7 g/dL (32.0-36.0); Mean Corpuscular Hemoglobin 28.3 pg (27.0-31.0); Mean Corpuscular Volume 92.2 fl (78.0-98.0); Mean Platelet Volume 10.8 fL (7.4-10.4); Platelet Count 150 10x3/uL (130-400); RBC Distribution Width 12.9 % (11.5-14.5); Red Blood Cell (RBC) Count 3.88 mill/uL (4.20-5.40)
[2022-08-14 05:09] LABS: Anion Gap 10 mmol/L (10-20); BUN (Urea Nitrogen) 11 mg/dL (9.8-20.1); Calc. Creatinine Clearance 102 mL/min (70-130); Calcium 9.5 mg/dL (7.8-10.44); Carbon Dioxide 36 mmol/L (23-31); Chloride 97 mmol/L (98-107); Estimated GFR 104; Glucose 187 mg/dL (80-115); Potassium 3.7 mmol/L (3.5-5.1); Sodium 139 mmol/L (136-145)
[2022-08-14] MEDS: Mometasone 200 MCG/Formoterol 5 MCG 120 PUFF INHALER INH SCH ×2 (07:39→18:49)
[2022-08-14] MEDS ORDERED: Famotidine 20 MG TAB PO SCH (09:00)
[2022-08-14] MEDS: Lisinopril 10 MG TAB PO SCH ×2 (09:38→22:05)
[2022-08-14] MEDS: Cyanocobalamin (Vitamin B-12) 1,000 MCG TAB PO SCH (09:38)
[2022-08-14] MEDS: Oseltamivir 75 MG CAP PO SCH ×2 (09:40→22:06)
[2022-08-14] MEDS: Famotidine 20 MG TAB PO SCH (09:40)
[2022-08-14] MEDS: DULoxetine 20 MG CAP PO SCH ×2 (09:40→22:05)
[2022-08-14] MEDS: Dextrose 5 %-0.45 % NaCl 1,000 ML IV SCH (13:06)
[2022-08-14] MEDS: Aztreonam 1 GM in Sodium Chloride 0.9% 100 ML IVPB SCH (15:25)
[2022-08-14] MEDS: Amlodipine 5 MG TAB PO SCH (22:04)
[2022-08-14] MEDS: Montelukast Sodium 10 mg Tablet PO SCH (22:06)
[2022-08-15] MEDS: Aztreonam 1 GM in Sodium Chloride 0.9% 100 ML IVPB SCH ×2 (03:51→15:31)
[2022-08-15] MEDS: Dextrose 5 %-0.45 % NaCl 1,000 ML IV SCH ×2 (03:52→15:31)
[2022-08-15] MEDS: Mometasone 200 MCG/Formoterol 5 MCG 120 PUFF INHALER INH SCH ×2 (07:29→18:57)
[2022-08-15] MEDS: Oseltamivir 75 MG CAP PO SCH ×2 (08:41→22:51)
[2022-08-15] MEDS: Famotidine 20 MG TAB PO SCH (08:41)
[2022-08-15] MEDS: Lisinopril 10 MG TAB PO SCH ×2 (08:41→22:50)
[2022-08-15] MEDS: DULoxetine 20 MG CAP PO SCH ×2 (08:41→22:50)
[2022-08-15] MEDS: Cyanocobalamin (Vitamin B-12) 1,000 MCG TAB PO SCH (08:42)
[2022-08-15] MEDS: Amlodipine 5 MG TAB PO SCH (22:50)
[2022-08-15] MEDS: Montelukast Sodium 10 mg Tablet PO SCH (22:51)
[2022-08-15] MEDS: GUAIFENESIN SF SOLN 200 MG/10 ML UDCUP PO PRN (22:58)
[2022-08-16] MEDS: Aztreonam 1 GM in Sodium Chloride 0.9% 100 ML IVPB SCH ×2 (03:30→14:35)
[2022-08-16 04:52] LABS: Hemoglobin 12.2 g/dL (12.0-16.0); Mean Corpuscular HGB CONC 31.3 g/dL (32.0-36.0); Mean Corpuscular Hemoglobin 28.7 pg (27.0-31.0); Mean Corpuscular Volume 91.6 fl (78.0-98.0); Platelet Count 159 10x3/uL (130-400); RBC Distribution Width 12.9 % (11.5-14.5); Red Blood Cell (RBC) Count 4.25 mill/uL (4.20-5.40); White Blood Cell (WBC) Count 5.5 10x3/uL (4.8-10.8)
[2022-08-16 05:11] LABS: BUN (Urea Nitrogen) 5 mg/dL (9.8-20.1); Calc. Creatinine Clearance 112 mL/min (70-130); Calcium 9.1 mg/dL (7.8-10.44); Estimated GFR 106; Glucose 106 mg/dL (80-115); Magnesium 1.9 mg/dL (1.6-2.6)
[2022-08-16] MEDS: Dextrose 5 %-0.45 % NaCl 1,000 ML IV SCH (05:16)
[2022-08-16 05:20] LABS: Anion Gap 13 mmol/L (10-20); Carbon Dioxide 36 mmol/L (23-31); Chloride 94 mmol/L (98-107); Potassium 2.9 mmol/L (3.5-5.1); Sodium 140 mmol/L (136-145)
[2022-08-16 05:32] LABS: Band 1 % (5-11); Lymphocytes 32 % (21-51); MDiff Complete? YES; Monocytes 16 % (0-10); Neutrophil 51 % (42-75)
[2022-08-16] MEDS ORDERED: Aspirin 325 mg Enteric Coated Tablet PO SCH (05:45)
[2022-08-16 06:14] LABS: Actual Bicarbonate (HCO3a) 42.3 mEq/L (22-28); Base Excess (BEa) 15.8 mEq/L (-2.0 to +3.0); CO2 Tension 58.8 mmHg (35.0-45.0); Calcium, Ionized (arterial) 1.16 mmol/L (1.12-1.30); Carboxyhemoglobin (COHb) 0.6 gm% (0.0-3.0); Hemoglobin (Hb) 13.8 g/dL (12.0-16.0); Potassium - ABG Lab 2.92 mmol/L (3.70-5.30); pH, Arterial 7.48 (7.35-7.45)
[2022-08-16 06:18] LABS: O2 Tension (PaO2), arterial 46.8 mmHg (> 80.0)
[2022-08-16 06:23] LABS: Troponin I Less than 0.010 ng/mL (< 0.028)
[2022-08-16] MEDS ORDERED: Ipratropium/Albuterol 3 ML NEB NEB PRN (06:42)
[2022-08-16] MEDS ORDERED: Furosemide 40 MG/4 ML VIAL SLOW IVP SCH (06:45)
[2022-08-16 07:01] LABS: #Lymphocytes 1.2 thou/uL (1.20-3.40); #Monocytes 0.9 thou/uL (0.11-0.59); #Neutrophils 6.4 thou/uL (1.40-6.50); %Basophils 0.1 % (0.0-1.0); %Eosinophils 0.1 % (0.0-10.0); %Lymphocytes 14.4 % (21.0-51.0); %Monocytes 10.7 % (0.0-10.0); %Neutrophils 74.8 % (42.0-75.0); Hemoglobin 12.6 g/dL (12.0-16.0); Mean Corpuscular HGB CONC 30.6 g/dL (32.0-36.0); Mean Corpuscular Volume 91.6 fl (78.0-98.0); Platelet Count 166 10x3/uL (130-400); Red Blood Cell (RBC) Count 4.49 mill/uL (4.20-5.40); White Blood Cell (WBC) Count 8.6 10x3/uL (4.8-10.8)
[2022-08-16 07:20] LABS: BUN (Urea Nitrogen) 7 mg/dL (9.8-20.1); Calc. Creatinine Clearance 120 mL/min (70-130); Calcium 9.4 mg/dL (7.8-10.44); Estimated GFR 108; Glucose 114 mg/dL (80-115)
[2022-08-16 07:22] LABS: Carbon Dioxide Greater than 37 mmol/L (23-31); Chloride 94 mmol/L (98-107); Sodium 139 mmol/L (136-145)
[2022-08-16] MEDS: Mometasone 200 MCG/Formoterol 5 MCG 120 PUFF INHALER INH SCH ×2 (07:38→18:55)
[2022-08-16] MEDS: DULoxetine 20 MG CAP PO SCH ×2 (10:11→20:45)
[2022-08-16] MEDS: Cyanocobalamin (Vitamin B-12) 1,000 MCG TAB PO SCH (10:12)
[2022-08-16] MEDS: Lisinopril 10 MG TAB PO SCH ×2 (10:12→20:45)
[2022-08-16] MEDS: Famotidine 20 MG TAB PO SCH (10:12)
[2022-08-16] MEDS: Oseltamivir 75 MG CAP PO SCH ×2 (10:12→20:45)
[2022-08-16] MEDS: Ipratropium/Albuterol 3 ML NEB NEB SCH ×4 (11:06→21:57)
[2022-08-16] MEDS ORDERED: Potassium Chloride 20 MEQ TAB PO SCH (11:30)
[2022-08-16] MEDS: Potassium Chloride 20 MEQ in Premix Bag 1 BAG IVPB SCH ×2 (13:32→14:35)
[2022-08-16] MEDS: metroNIDAZOLE 500 MG in Premix Bag 1 BAG IVPB SCH ×2 (13:32→20:44)
[2022-08-16] MEDS: Potassium Bicarbonate/Cit Ac 20 MEQ TAB PO SCH ×2 (20:44→22:44)
[2022-08-16] MEDS: Montelukast Sodium 10 mg Tablet PO SCH (20:45)
[2022-08-16] MEDS: Amlodipine 5 MG TAB PO SCH (20:45)
[2022-08-17] MEDS: Ipratropium/Albuterol 3 ML NEB NEB SCH ×6 (02:18→22:37)
[2022-08-17] MEDS: Aztreonam 1 GM in Sodium Chloride 0.9% 100 ML IVPB SCH ×2 (02:31→15:34)
[2022-08-17 03:55] LABS: #Lymphocytes 1.7 thou/uL (1.20-3.40); #Monocytes 0.7 thou/uL (0.11-0.59); #Neutrophils 4.4 thou/uL (1.40-6.50); %Basophils 0.6 % (0.0-1.0); %Eosinophils 0.3 % (0.0-10.0); %Lymphocytes 24.1 % (21.0-51.0); %Monocytes 10.7 % (0.0-10.0); %Neutrophils 64.3 % (42.0-75.0); Hemoglobin 12.7 g/dL (12.0-16.0); Mean Corpuscular HGB CONC 30.6 g/dL (32.0-36.0); Mean Corpuscular Hemoglobin 28.3 pg (27.0-31.0); Mean Corpuscular Volume 92.4 fl (78.0-98.0); Platelet Count 168 10x3/uL (130-400); White Blood Cell (WBC) Count 6.8 10x3/uL (4.8-10.8)
[2022-08-17 04:15] LABS: BUN (Urea Nitrogen) 11 mg/dL (9.8-20.1); Calc. Creatinine Clearance 0 mL/min (70-130); Calcium 9.7 mg/dL (7.8-10.44); Estimated GFR 104; Glucose 101 mg/dL (80-115)
[2022-08-17 04:24] LABS: Anion Gap 17 mmol/L (10-20); Carbon Dioxide 32 mmol/L (23-31); Chloride 90 mmol/L (98-107); Potassium 3.4 mmol/L (3.5-5.1); Sodium 136 mmol/L (136-145)
[2022-08-17] MEDS: metroNIDAZOLE 500 MG in Premix Bag 1 BAG IVPB SCH (04:42)
[2022-08-17] MEDS: Mometasone 200 MCG/Formoterol 5 MCG 120 PUFF INHALER INH SCH ×2 (07:25→18:43)
[2022-08-17] MEDS: Lisinopril 10 MG TAB PO SCH ×2 (08:55→22:02)
[2022-08-17] MEDS: DULoxetine 20 MG CAP PO SCH ×2 (08:55→22:09)
[2022-08-17] MEDS: Cyanocobalamin (Vitamin B-12) 1,000 MCG TAB PO SCH (08:55)
[2022-08-17] MEDS: Famotidine 20 MG TAB PO SCH (08:55)
[2022-08-17] MEDS ORDERED: Potassium Bicarbonate/Cit Ac 20 MEQ TAB PO SCH (11:00)
[2022-08-17] MEDS ORDERED: DRY MOUTH SPRAY MM PRN (13:20)
[2022-08-17] MEDS ORDERED: Meropenem 1 GM in Sodium Chloride 0.9% 100 ML IVPB SCH (14:00)
[2022-08-17] MEDS: Potassium Bicarbonate/Cit Ac 20 MEQ TAB PO SCH (18:09)
[2022-08-17] MEDS: methylPREDNISolone Sod Succ 40 MG VIAL IVP SCH (22:01)
[2022-08-17] MEDS: Melatonin 3 MG TAB PO PRN (22:02)
[2022-08-17] MEDS: Montelukast Sodium 10 mg Tablet PO SCH (22:02)
[2022-08-17] MEDS: Amlodipine 5 MG TAB PO SCH (22:02)
[2022-08-17] MEDS: Meropenem 1 GM in Sodium Chloride 0.9% 100 ML IVPB SCH (22:09)
[2022-08-18] MEDS: Ipratropium/Albuterol 3 ML NEB NEB SCH ×6 (02:29→23:49)
[2022-08-18 04:24] LABS: #Eosinphils 0.1 thou/uL (0.0-0.7); #Lymphocytes 0.8 thou/uL (1.20-3.40); #Monocytes 0.2 thou/uL (0.11-0.59); #Neutrophils 10.2 thou/uL (1.40-6.50); %Basophils 0.3 % (0.0-1.0); %Eosinophils 0.7 % (0.0-10.0); %Monocytes 1.5 % (0.0-10.0); %Neutrophils 90.6 % (42.0-75.0); Hemoglobin 13.1 g/dL (12.0-16.0); Mean Corpuscular HGB CONC 30.5 g/dL (32.0-36.0); Mean Corpuscular Hemoglobin 28.4 pg (27.0-31.0); Mean Corpuscular Volume 93.2 fl (78.0-98.0); Platelet Count 203 10x3/uL (130-400); Red Blood Cell (RBC) Count 4.63 mill/uL (4.20-5.40); White Blood Cell (WBC) Count 11.2 10x3/uL (4.8-10.8)
[2022-08-18 04:50] LABS: Anion Gap 17 mmol/L (10-20); BUN (Urea Nitrogen) 12 mg/dL (9.8-20.1); Calc. Creatinine Clearance 93 mL/min (70-130); Calcium 9.9 mg/dL (7.8-10.44); Carbon Dioxide 32 mmol/L (23-31); Chloride 92 mmol/L (98-107); Estimated GFR 105; Glucose 113 mg/dL (80-115); Magnesium 2.1 mg/dL (1.6-2.6); Potassium 5.3 mmol/L (3.5-5.1); Sodium 136 mmol/L (136-145)
[2022-08-18] MEDS: Aztreonam 1 GM in Sodium Chloride 0.9% 100 ML IVPB SCH ×2 (04:55→13:59)
[2022-08-18] MEDS: Meropenem 1 GM in Sodium Chloride 0.9% 100 ML IVPB SCH ×3 (06:30→22:14)
[2022-08-18] MEDS: Mometasone 200 MCG/Formoterol 5 MCG 120 PUFF INHALER INH SCH ×2 (06:45→18:59)
[2022-08-18] MEDS: Lisinopril 10 MG TAB PO SCH (08:34)
[2022-08-18] MEDS: Potassium Bicarbonate/Cit Ac 20 MEQ TAB PO SCH (08:34)
[2022-08-18] MEDS: DULoxetine 20 MG CAP PO SCH ×2 (08:34→22:14)
[2022-08-18] MEDS: Cyanocobalamin (Vitamin B-12) 1,000 MCG TAB PO SCH (08:34)
[2022-08-18] MEDS: Famotidine 20 MG TAB PO SCH (08:35)
[2022-08-18] MEDS: methylPREDNISolone Sod Succ 40 MG VIAL IVP SCH ×2 (08:35→22:13)
[2022-08-18] MEDS ORDERED: Genteal 0.3% 3.5ml GEL EA EYE PRN (09:38)
[2022-08-18] MEDS: Sodium Chloride 0.9% 1,000 ML IV SCH (10:59)
[2022-08-18] MEDS ORDERED: Famotidine 20 MG TAB PO SCH (21:00)
[2022-08-18] MEDS: Melatonin 3 MG TAB PO PRN (22:13)
[2022-08-18] MEDS: Amlodipine 5 MG TAB PO SCH (22:13)
[2022-08-18] MEDS: Montelukast Sodium 10 mg Tablet PO SCH (22:13)
[2022-08-19] MEDS: Ipratropium/Albuterol 3 ML NEB NEB SCH ×6 (03:22→22:42)
[2022-08-19] MEDS: Sodium Chloride 0.9% 1,000 ML IV SCH (04:45)
[2022-08-19] MEDS: Aztreonam 1 GM in Sodium Chloride 0.9% 100 ML IVPB SCH ×2 (04:50→13:10)
[2022-08-19] MEDS: Mometasone 200 MCG/Formoterol 5 MCG 120 PUFF INHALER INH SCH ×2 (06:43→19:00)
[2022-08-19] MEDS: Meropenem 1 GM in Sodium Chloride 0.9% 100 ML IVPB SCH ×3 (07:01→21:04)
[2022-08-19 07:42] LABS: #Lymphocytes 1.2 thou/uL (1.20-3.40); #Monocytes 0.6 thou/uL (0.11-0.59); #Neutrophils 4.7 thou/uL (1.40-6.50); %Basophils 0.5 % (0.0-1.0); %Eosinophils 0.2 % (0.0-10.0); %Lymphocytes 18.1 % (21.0-51.0); %Monocytes 9.5 % (0.0-10.0); %Neutrophils 71.7 % (42.0-75.0); Mean Corpuscular HGB CONC 30.9 g/dL (32.0-36.0); Mean Corpuscular Hemoglobin 28.5 pg (27.0-31.0); Mean Corpuscular Volume 92.2 fl (78.0-98.0); Mean Platelet Volume 9.2 fL (7.4-10.4); Platelet Count 253 10x3/uL (130-400); RBC Distribution Width 12.9 % (11.5-14.5); White Blood Cell (WBC) Count 6.6 10x3/uL (4.8-10.8)
[2022-08-19 07:55] LABS: Anion Gap 11 mmol/L (10-20); BUN (Urea Nitrogen) 13 mg/dL (9.8-20.1); Calc. Creatinine Clearance 101 mL/min (70-130); Calcium 9.5 mg/dL (7.8-10.44); Carbon Dioxide 36 mmol/L (23-31); Chloride 95 mmol/L (98-107); Estimated GFR 107; Glucose 95 mg/dL (80-115); Magnesium 2.1 mg/dL (1.6-2.6); Potassium 4.5 mmol/L (3.5-5.1); Sodium 137 mmol/L (136-145)
[2022-08-19] MEDS: DULoxetine 20 MG CAP PO SCH ×2 (09:06→20:38)
[2022-08-19] MEDS: methylPREDNISolone Sod Succ 40 MG VIAL IVP SCH (09:06)
[2022-08-19] MEDS: Famotidine 20 MG TAB PO SCH (09:07)
[2022-08-19] MEDS: Cyanocobalamin (Vitamin B-12) 1,000 MCG TAB PO SCH (09:07)
[2022-08-19] MEDS: Montelukast Sodium 10 mg Tablet PO SCH (20:39)
[2022-08-19] MEDS: Amlodipine 5 MG TAB PO SCH (20:39)
[2022-08-20] MEDS: Ipratropium/Albuterol 3 ML NEB NEB SCH ×6 (02:45→22:28)
[2022-08-20 04:12] LABS: Anion Gap 8 mmol/L (10-20); BUN (Urea Nitrogen) 10 mg/dL (9.8-20.1); Calc. Creatinine Clearance 110 mL/min (70-130); Calcium 9.3 mg/dL (7.8-10.44); Carbon Dioxide 37 mmol/L (23-31); Chloride 95 mmol/L (98-107); Estimated GFR 109; Glucose 85 mg/dL (80-115); Magnesium 2.1 mg/dL (1.6-2.6); Potassium 4.5 mmol/L (3.5-5.1); Sodium 135 mmol/L (136-145)
[2022-08-20] MEDS: Mometasone 200 MCG/Formoterol 5 MCG 120 PUFF INHALER INH SCH ×2 (08:00→18:41)
[2022-08-20] MEDS: Amoxicillin/Potassium Clav 875 MG TAB PO SCH ×2 (09:27→20:54)
[2022-08-20] MEDS: methylPREDNISolone Sod Succ 40 MG VIAL IVP SCH (09:27)
[2022-08-20] MEDS: Famotidine 20 MG TAB PO SCH (09:28)
[2022-08-20] MEDS: DULoxetine 20 MG CAP PO SCH ×2 (09:28→20:54)
[2022-08-20] MEDS: Cyanocobalamin (Vitamin B-12) 1,000 MCG TAB PO SCH (09:28)
[2022-08-20] MEDS: Amlodipine 5 MG TAB PO SCH (20:54)
[2022-08-20] MEDS: Montelukast Sodium 10 mg Tablet PO SCH (20:54)
[2022-08-21] MEDS: Ipratropium/Albuterol 3 ML NEB NEB SCH ×4 (02:16→14:41)
[2022-08-21] MEDS: Mometasone 200 MCG/Formoterol 5 MCG 120 PUFF INHALER INH SCH (06:12)
[2022-08-21 07:12] VITALS: TEMP 98.4
[2022-08-21 08:02] LABS: Anion Gap 13 mmol/L (10-20); Carbon Dioxide 40 mmol/L (23-31); Chloride 89 mmol/L (98-107); Sodium 137 mmol/L (136-145)
[2022-08-21 08:06] LABS: BUN (Urea Nitrogen) 8 mg/dL (9.8-20.1); Calc. Creatinine Clearance 118 mL/min (70-130); Estimated GFR 111; Glucose 75 mg/dL (80-115)
[2022-08-21] MEDS: methylPREDNISolone Sod Succ 40 MG VIAL IVP SCH (09:06)
[2022-08-21] MEDS: Cyanocobalamin (Vitamin B-12) 1,000 MCG TAB PO SCH (09:06)
[2022-08-21] MEDS: Famotidine 20 MG TAB PO SCH (09:06)
[2022-08-21] MEDS: Amoxicillin/Potassium Clav 875 MG TAB PO SCH (09:06)
[2022-08-21] MEDS: DULoxetine 20 MG CAP PO SCH (09:07)
[2022-08-21] MEDS ORDERED: Sodium Chloride 0.9% 250 ML IV SCH (10:45)
[2022-08-21 14:37] VITALS: BP 137/76
== END 2022-08-21 14:57 | DRG 177 ==
LOC: ERS 09:38 → ERHOLD 13:02 → 2NO 20:44 → OBSVTOIN 08-14 08:46 → IMCU/EMU 08-16 08:44
PROVIDERS: ADMIT Internal Medicine; ATTEND Internal Medicine
PROC: 8E0ZXY6 Isolation (ICD-10-PCS; 2022-08-12)
PROC: 5A09357 Assistance with Respiratory Ventilation, Less than 24 Consecutive Hours, Continuous Positive Airway Pressure (ICD-10-PCS; principal; 2022-08-16)
DX: J69.0 Pneumonitis due to inhalation of food and vomit (principal); Z66 Do not resuscitate; Z20.822 Contact with and (suspected) exposure to COVID-19; J96.21 Acute and chronic respiratory failure with hypoxia; I69.151 Hemiplegia and hemiparesis following nontraumatic intracerebral hemorrhage affecting right dominant side; N30.00 Acute cystitis without hematuria; J10.08 Influenza due to other identified influenza virus with other specified pneumonia; J12.9 Viral pneumonia, unspecified; R13.12 Dysphagia, oropharyngeal phase; J45.30 Mild persistent asthma, uncomplicated; B96.4 Proteus (mirabilis) (morganii) as the cause of diseases classified elsewhere; I10 Essential (primary) hypertension; K22.2 Esophageal obstruction; I25.10 Atherosclerotic heart disease of native coronary artery without angina pectoris; Z88.1 Allergy status to other antibiotic agents; Z91.012 Allergy to eggs; Z88.8 Allergy status to other drugs, medicaments and biological substances; Z91.018 Allergy to other foods; Z79.899 Other long term (current) drug therapy; Z79.51 Long term (current) use of inhaled steroids; Z79.52 Long term (current) use of systemic steroids; Z86.16 Personal history of COVID-19; Z87.01 Personal history of pneumonia (recurrent); Z95.1 Presence of aortocoronary bypass graft; Z98.84 Bariatric surgery status; Z82.49 Family history of ischemic heart disease and other diseases of the circulatory system
CPT/HCPCS: 36415; 51701; 71045; 80048; 80053; 81003; 81015; 82805; 83690; 83735; 83880; 84145; 84484; 85025; 87040; 87077; 87086; 87186; 87804; 87811; 93005; 93010; 94664; 96365; 96372; 96375; 96376; G0378; J1650; J1940; J1956; J2185; J2920; J3480; J3490; J7030; J7042; J7050; J7611; J7620; U0003; U0005

== ENCOUNTER 2022-08-22 16:31 | Inpatient (IN) | payer OTHER ==
[~2022-08-22 16:31] MED LIST: Iopamidol-370 76% 500 ML 1 ML ONE
[2022-08-22 17:51] LABS: Hemoglobin 14.8 g/dL (12.0-16.0); Mean Corpuscular HGB CONC 30.4 g/dL (32.0-36.0); Mean Corpuscular Hemoglobin 27.7 pg (27.0-31.0); Mean Corpuscular Volume 91.2 fl (78.0-98.0); Mean Platelet Volume 9.2 fL (7.4-10.4); Platelet Count 314 10x3/uL (130-400); RBC Distribution Width 13.2 % (11.5-14.5); Red Blood Cell (RBC) Count 5.34 mill/uL (4.20-5.40); White Blood Cell (WBC) Count 41.9 10x3/uL (4.8-10.8)
[2022-08-22 18:11] LABS: AST (SGOT) 30 U/L (5-34); Albumin 3.7 g/dL (3.4-4.8); Anion Gap 17 mmol/L (10-20); BUN (Urea Nitrogen) 26 mg/dL (9.8-20.1); Bilirubin, Total 0.5 mg/dL (0.2-1.2); Calc. Creatinine Clearance 0 mL/min (70-130); Calcium 9.9 mg/dL (7.8-10.44); Carbon Dioxide 29 mmol/L (23-31); Chloride 91 mmol/L (98-107); Estimated GFR 98; Globulin 3.4 g/dL (2.4-3.5); Glucose 145 mg/dL (80-115); Potassium 4.1 mmol/L (3.5-5.1); Protein, Total 7.1 g/dL (5.8-8.1); Sodium 133 mmol/L (136-145)
[2022-08-22 18:15] LABS: Band 11 % (5-11); Lymphocytes 3 % (21-51); MDiff Complete? YES; Monocytes 1 % (0-10); Neutrophil 84 % (42-75); Platelet Morphology Comment Appears Adequate; RBC Morphology Normal; Reactive Lymphocytes 1 % (0-10)
[2022-08-22 18:20] LABS: ALT (SGPT) 42 U/L (8-55); Alkaline Phosphatase 83 U/L (40-110)
[2022-08-22 19:40] LABS: CK (CPK) 32 U/L (29-168); Lipase 34 U/L (8-78)
[2022-08-22 19:43] LABS: Bacteria/HPF 2+ HPF (None Seen); Bilirubin Negative (Negative); Blood, Urine Negative (Negative); Clarity Turbid (Clear); Glucose, Urine (Dipstick) Normal (Negative); Ketone, Urine Negative (Negative); Leukocyte 250 Leu/uL (Negative); Mucous/LPF 1+ LPF (<2+); Nitrite Negative (Negative); Protein, Urine (Dipstick) 10 mg/dL (Neg-Trace); RBC/HPF 0-3 HPF (0-3); Specific Gravity, Urine 1.023 (1.002-1.036); Squamous Epithelial 0-3 HPF (0-3); Transitional Epithelial 0-3 HPF (None Seen); Urobilinogen Normal mg/dL (Less than 2); WBC/HPF 21-50 HPF (0-3); pH, Urine 5.5 (5.0-9.0)
[2022-08-22] MEDS ORDERED: Senokot S 8.6-50 MG TAB PO PRN (20:59)
[2022-08-22] MEDS ORDERED: Ondansetron PF 4 MG/2 ML Vial IVP PRN (20:59)
[2022-08-22] MEDS ORDERED: Fleet Enema 133 ML BOT PR SCH (21:00)
[2022-08-22] MEDS ORDERED: Vancomycin 1 GM/200 ML (FROZEN) BAG ONE (21:24)
[2022-08-22] MEDS ORDERED: Guaifenesin DM 100-10/5 ML UDCUP PO PRN (22:43)
[2022-08-22] MEDS ORDERED: Benzonatate 100 MG CAP PO PRN (22:43)
[2022-08-22] MEDS ORDERED: Bisacodyl 5 MG TAB PO PRN (22:43)
[2022-08-22] MEDS ORDERED: Non-Formulary Item 1 EACH (Albuterol Sulfate [Proair Digihaler] 90 MCG Aer.Pw.Bas) IH PRN (22:43)
[2022-08-22 23:12] LABS: Lactic Acid 1.2 mmol/L (0.5-2.2)
[2022-08-22 23:21] LABS: Troponin I Less than 0.010 ng/mL (< 0.028)
[2022-08-22 23:53] VITALS: BMI 21.2
[2022-08-23] MEDS: MINERAL OIL/WHITE PETROLATUM 3.5 GM TUBE L EYE SCH ×4 (01:10→17:42)
[2022-08-23] MEDS: Ipratropium/Albuterol 3 ML NEB NEB SCH ×6 (04:06→21:56)
[2022-08-23 07:31] LABS: Anion Gap 9 mmol/L (10-20); BUN (Urea Nitrogen) 20 mg/dL (9.8-20.1); Calc. Creatinine Clearance 94 mL/min (70-130); Calcium 8.5 mg/dL (7.8-10.44); Carbon Dioxide 33 mmol/L (23-31); Chloride 99 mmol/L (98-107); Estimated GFR 105; Glucose 76 mg/dL (80-115); Potassium 3.4 mmol/L (3.5-5.1); Sodium 138 mmol/L (136-145)
[2022-08-23] MEDS: Mometasone 200 MCG/Formoterol 5 MCG 120 PUFF INHALER INH SCH ×2 (07:35→18:41)
[2022-08-23 07:36] LABS: Troponin I Less than 0.010 ng/mL (< 0.028)
[2022-08-23] MEDS ORDERED: PETROLATUM WHITE OP SCH (09:00)
[2022-08-23] MEDS: predniSONE 20 MG TAB PO SCH ×2 (09:00→16:16)
[2022-08-23] MEDS: Fluticasone Propionate Nasal Spray 16 gm Bottle NASAL SCH (09:00)
[2022-08-23] MEDS: Ascorbic Acid 500 mg Chewable Tablet PO SCH (09:00)
[2022-08-23] MEDS: Prenatal Vitamin 1 TAB PO SCH (09:00)
[2022-08-23] MEDS: Cyanocobalamin (Vitamin B-12) 1,000 MCG TAB PO SCH (09:00)
[2022-08-23] MEDS: guaiFENesin ER 600 MG TAB PO SCH ×2 (09:00→20:38)
[2022-08-23] MEDS: Famotidine 20 MG TAB PO SCH (09:00)
[2022-08-23] MEDS ORDERED: [UNRECOGNIZED DRUG - OTHER] OP SCH (09:00)
[2022-08-23] MEDS: Lisinopril 10 MG TAB PO SCH ×2 (09:00→20:38)
[2022-08-23] MEDS: DULoxetine 20 MG CAP PO SCH ×2 (09:00→20:38)
[2022-08-23] MEDS ORDERED: MINERAL OIL OP SCH (09:00)
[2022-08-23 09:47] LABS: Band 2 % (5-11); Hemoglobin 11.3 g/dL (12.0-16.0); Hypochromia SLIGHT = 6-15 cells (100X) (0-5/hpf); Large Platelets SLIGHT; Lymphocytes 5 % (21-51); MDiff Complete? YES; Mean Corpuscular HGB CONC 30.7 g/dL (32.0-36.0); Mean Corpuscular Hemoglobin 28.1 pg (27.0-31.0); Mean Corpuscular Volume 91.7 fl (78.0-98.0); Mean Platelet Volume 9.2 fL (7.4-10.4); Monocytes 6 % (0-10); Neutrophil 87 % (42-75); Platelet Count 272 10x3/uL (130-400); Platelet Morphology Comment Appears Adequate; RBC Distribution Width 13.1 % (11.5-14.5); Red Blood Cell (RBC) Count 4.01 mill/uL (4.20-5.40); Vacuoles SLIGHT; White Blood Cell (WBC) Count 21.6 10x3/uL (4.8-10.8)
[2022-08-23] MEDS ORDERED: Potassium Chloride 20 MEQ in Premix Bag 1 BAG IVPB SCH (10:00)
[2022-08-23] MEDS: Vancomycin HCl 750 MG in Sodium Chloride 0.9% 250 ML 250 ML IVPB SCH (16:15)
[2022-08-23] MEDS: Montelukast Sodium 10 mg Tablet PO SCH (20:38)
[2022-08-23] MEDS: Amlodipine 5 MG TAB PO SCH (20:38)
[2022-08-23] MEDS: Melatonin 3 MG TAB PO SCH (20:39)
[2022-08-24] MEDS: MINERAL OIL/WHITE PETROLATUM 3.5 GM TUBE L EYE SCH ×5 (00:30→23:40)
[2022-08-24] MEDS: Ipratropium/Albuterol 3 ML NEB NEB SCH ×6 (02:07→21:41)
[2022-08-24] MEDS: Vancomycin HCl 750 MG in Sodium Chloride 0.9% 250 ML 250 ML IVPB SCH ×2 (04:08→16:17)
[2022-08-24] MEDS: Acetaminophen 325 MG TAB PO PRN ×2 (04:17→20:54)
[2022-08-24 05:00] LABS: #Lymphocytes 1.1 thou/uL (1.20-3.40); #Monocytes 0.5 thou/uL (0.11-0.59); #Neutrophils 8.3 thou/uL (1.40-6.50); %Eosinophils 0.1 % (0.0-10.0); %Lymphocytes 11.1 % (21.0-51.0); %Monocytes 4.6 % (0.0-10.0); %Neutrophils 84.3 % (42.0-75.0); Hemoglobin 10.5 g/dL (12.0-16.0); Mean Corpuscular HGB CONC 30.1 g/dL (32.0-36.0); Mean Corpuscular Volume 92.7 fl (78.0-98.0); Mean Platelet Volume 9.5 fL (7.4-10.4); Platelet Count 250 10x3/uL (130-400); RBC Distribution Width 13.1 % (11.5-14.5); Red Blood Cell (RBC) Count 3.77 mill/uL (4.20-5.40); White Blood Cell (WBC) Count 9.9 10x3/uL (4.8-10.8)
[2022-08-24 05:07] LABS: Anion Gap 12 mmol/L (10-20); BUN (Urea Nitrogen) 9 mg/dL (9.8-20.1); Calc. Creatinine Clearance 106 mL/min (70-130); Carbon Dioxide 30 mmol/L (23-31); Chloride 99 mmol/L (98-107); Estimated GFR 108; Glucose 116 mg/dL (80-115); Sodium 137 mmol/L (136-145)
[2022-08-24] MEDS: Mometasone 200 MCG/Formoterol 5 MCG 120 PUFF INHALER INH SCH ×2 (07:41→18:22)
[2022-08-24] MEDS: Ascorbic Acid 500 mg Chewable Tablet PO SCH (09:04)
[2022-08-24] MEDS: Cyanocobalamin (Vitamin B-12) 1,000 MCG TAB PO SCH (09:04)
[2022-08-24] MEDS: Prenatal Vitamin 1 TAB PO SCH (09:05)
[2022-08-24] MEDS: Famotidine 20 MG TAB PO SCH (09:05)
[2022-08-24] MEDS: predniSONE 20 MG TAB PO SCH (09:05)
[2022-08-24] MEDS: Lisinopril 10 MG TAB PO SCH ×2 (09:05→20:53)
[2022-08-24] MEDS: DULoxetine 20 MG CAP PO SCH ×2 (14:36→20:53)
[2022-08-24] MEDS: guaiFENesin ER 600 MG TAB PO SCH ×2 (14:37→20:53)
[2022-08-24] MEDS: Fluticasone Propionate Nasal Spray 16 gm Bottle NASAL SCH (14:37)
[2022-08-24] MEDS: Amlodipine 5 MG TAB PO SCH (20:53)
[2022-08-24] MEDS: Montelukast Sodium 10 mg Tablet PO SCH (20:54)
[2022-08-24] MEDS: Melatonin 3 MG TAB PO SCH (20:54)
[2022-08-25] MEDS: Ipratropium/Albuterol 3 ML NEB NEB SCH ×6 (02:12→22:25)
[2022-08-25] MEDS: Vancomycin HCl 750 MG in Sodium Chloride 0.9% 250 ML 250 ML IVPB SCH (04:34)
[2022-08-25] MEDS: MINERAL OIL/WHITE PETROLATUM 3.5 GM TUBE L EYE SCH ×3 (05:28→16:57)
[2022-08-25] MEDS: Ascorbic Acid 500 mg Chewable Tablet PO SCH (09:09)
[2022-08-25] MEDS: Famotidine 20 MG TAB PO SCH (09:09)
[2022-08-25] MEDS: Lisinopril 10 MG TAB PO SCH ×2 (09:09→21:02)
[2022-08-25] MEDS: Cyanocobalamin (Vitamin B-12) 1,000 MCG TAB PO SCH (09:09)
[2022-08-25] MEDS: DULoxetine 20 MG CAP PO SCH ×2 (09:09→21:01)
[2022-08-25] MEDS: predniSONE 20 MG TAB PO SCH (09:09)
[2022-08-25] MEDS: Prenatal Vitamin 1 TAB PO SCH (09:09)
[2022-08-25] MEDS: guaiFENesin ER 600 MG TAB PO SCH (09:10)
[2022-08-25 09:47] LABS: #Eosinphils 0.1 thou/uL (0.0-0.7); #Lymphocytes 1.8 thou/uL (1.20-3.40); #Monocytes 0.5 thou/uL (0.11-0.59); %Basophils 0.5 % (0.0-1.0); %Eosinophils 0.8 % (0.0-10.0); %Lymphocytes 18.7 % (21.0-51.0); %Monocytes 5.5 % (0.0-10.0); %Neutrophils 74.5 % (42.0-75.0); Mean Corpuscular HGB CONC 32.6 g/dL (32.0-36.0); Mean Corpuscular Hemoglobin 30.5 pg (27.0-31.0); Mean Corpuscular Volume 93.7 fl (78.0-98.0); Mean Platelet Volume 8.9 fL (7.4-10.4); Platelet Count 276 10x3/uL (130-400); Red Blood Cell (RBC) Count 3.93 mill/uL (4.20-5.40); White Blood Cell (WBC) Count 9.4 10x3/uL (4.8-10.8)
[2022-08-25 10:12] LABS: Anion Gap 12 mmol/L (10-20); BUN (Urea Nitrogen) 6 mg/dL (9.8-20.1); Calc. Creatinine Clearance 92 mL/min (70-130); Calcium 9.5 mg/dL (7.8-10.44); Carbon Dioxide 37 mmol/L (23-31); Chloride 95 mmol/L (98-107); Estimated GFR 104; Glucose 109 mg/dL (80-115); Potassium 3.3 mmol/L (3.5-5.1); Sodium 140 mmol/L (136-145)
[2022-08-25] MEDS: Fluticasone Propionate Nasal Spray 16 gm Bottle NASAL SCH (10:20)
[2022-08-25] MEDS: Mometasone 200 MCG/Formoterol 5 MCG 120 PUFF INHALER INH SCH ×2 (10:55→18:46)
[2022-08-25] MEDS ORDERED: Potassium Bicarbonate/Cit Ac 20 MEQ TAB PO SCH (11:59)
[2022-08-25] MEDS: Potassium Chloride 20 MEQ TAB PO SCH ×2 (12:00→15:32)
[2022-08-25] MEDS: Melatonin 3 MG TAB PO SCH (21:01)
[2022-08-25] MEDS: Montelukast Sodium 10 mg Tablet PO SCH (21:02)
[2022-08-25] MEDS: Amlodipine 5 MG TAB PO SCH (21:02)
[2022-08-25] MEDS: Guaifenesin DM 100-10/5 ML UDCUP PO PRN (21:02)
[2022-08-26] MEDS: MINERAL OIL/WHITE PETROLATUM 3.5 GM TUBE L EYE SCH ×5 (00:20→22:51)
[2022-08-26] MEDS: Ipratropium/Albuterol 3 ML NEB NEB SCH ×6 (02:08→22:04)
[2022-08-26] MEDS ORDERED: Electrolyte Replacement Protocol 1 EACH FS SCH (07:30)
[2022-08-26] MEDS: Mometasone 200 MCG/Formoterol 5 MCG 120 PUFF INHALER INH SCH ×2 (07:36→18:03)
[2022-08-26] MEDS: Fluticasone Propionate Nasal Spray 16 gm Bottle NASAL SCH (09:24)
[2022-08-26] MEDS: Lisinopril 10 MG TAB PO SCH (09:25)
[2022-08-26] MEDS: Ascorbic Acid 500 mg Chewable Tablet PO SCH (09:25)
[2022-08-26] MEDS: Prenatal Vitamin 1 TAB PO SCH (09:25)
[2022-08-26] MEDS: predniSONE 20 MG TAB PO SCH (09:25)
[2022-08-26] MEDS: Cyanocobalamin (Vitamin B-12) 1,000 MCG TAB PO SCH (09:25)
[2022-08-26] MEDS: Famotidine 20 MG TAB PO SCH (09:25)
[2022-08-26] MEDS: DULoxetine 20 MG CAP PO SCH ×2 (09:25→21:29)
[2022-08-26 15:59] LABS: Anion Gap 14 mmol/L (10-20); BUN (Urea Nitrogen) 8 mg/dL (9.8-20.1); Calc. Creatinine Clearance 87 mL/min (70-130); Calcium 9.6 mg/dL (7.8-10.44); Carbon Dioxide 35 mmol/L (23-31); Chloride 92 mmol/L (98-107); Estimated GFR 103; Glucose 150 mg/dL (80-115); Potassium 4.3 mmol/L (3.5-5.1); Sodium 137 mmol/L (136-145)
[2022-08-26 16:01] LABS: Magnesium 2.1 mg/dL (1.6-2.6); Phosphorus 3.9 mg/dL (2.3-4.7)
[2022-08-26] MEDS: Melatonin 3 MG TAB PO SCH (21:29)
[2022-08-26] MEDS: Amlodipine 5 MG TAB PO SCH (21:30)
[2022-08-26] MEDS: Guaifenesin DM 100-10/5 ML UDCUP PO PRN (21:30)
[2022-08-26] MEDS: Montelukast Sodium 10 mg Tablet PO SCH (21:30)
[2022-08-27] MEDS: Ipratropium/Albuterol 3 ML NEB NEB SCH ×4 (02:29→14:32)
[2022-08-27] MEDS: MINERAL OIL/WHITE PETROLATUM 3.5 GM TUBE L EYE SCH ×2 (05:19→11:39)
[2022-08-27] MEDS: Mometasone 200 MCG/Formoterol 5 MCG 120 PUFF INHALER INH SCH (07:10)
[2022-08-27] MEDS ORDERED: predniSONE 20 MG TAB PO SCH (08:00)
[2022-08-27] MEDS: Fluticasone Propionate Nasal Spray 16 gm Bottle NASAL SCH (08:44)
[2022-08-27] MEDS: Prenatal Vitamin 1 TAB PO SCH (08:45)
[2022-08-27] MEDS: Famotidine 20 MG TAB PO SCH (08:45)
[2022-08-27] MEDS: Ascorbic Acid 500 mg Chewable Tablet PO SCH (08:45)
[2022-08-27] MEDS: DULoxetine 20 MG CAP PO SCH (08:45)
[2022-08-27] MEDS ORDERED: Multivit, Therapeutic 1 TAB PO SCH (09:00)
[2022-08-27] MEDS ORDERED: Folic Acid 1 MG TAB PO SCH (09:00)
[2022-08-27] MEDS ORDERED: Cyanocobalamin (Vitamin B-12) 1,000 MCG TAB PO SCH (09:00)
[2022-08-27 15:57] VITALS: BP 121/60; TEMP 96
[2022-08-28] MEDS ORDERED: predniSONE 20 MG TAB PO SCH (09:00)
[2022-09-02] MEDS ORDERED: predniSONE 5 MG TAB PO SCH (09:00)
== END 2022-08-27 19:08 | DRG 312 ==
LOC: ERS 16:31 → T4-B 20:30 → 2NO 08-23 18:14
PROVIDERS: ADMIT Hospitalist; ATTEND Internal Medicine
DX: R55 Syncope and collapse (principal); J96.11 Chronic respiratory failure with hypoxia; N39.0 Urinary tract infection, site not specified; J44.1 Chronic obstructive pulmonary disease with (acute) exacerbation; E87.20 Acidosis, unspecified; J98.11 Atelectasis; I69.354 Hemiplegia and hemiparesis following cerebral infarction affecting left non-dominant side; E86.0 Dehydration; R53.81 Other malaise; I08.3 Combined rheumatic disorders of mitral, aortic and tricuspid valves; I10 Essential (primary) hypertension; Z20.822 Contact with and (suspected) exposure to COVID-19; I25.10 Atherosclerotic heart disease of native coronary artery without angina pectoris; K59.00 Constipation, unspecified; R13.10 Dysphagia, unspecified; D72.829 Elevated white blood cell count, unspecified; Z66 Do not resuscitate; Z91.012 Allergy to eggs; Z88.1 Allergy status to other antibiotic agents; Z91.014 Allergy to mammalian meats; Z88.8 Allergy status to other drugs, medicaments and biological substances; Z79.899 Other long term (current) drug therapy; Z79.52 Long term (current) use of systemic steroids; Z95.1 Presence of aortocoronary bypass graft; Z98.84 Bariatric surgery status; Z82.49 Family history of ischemic heart disease and other diseases of the circulatory system; I69.322 Dysarthria following cerebral infarction; I69.391 Dysphagia following cerebral infarction; Z99.81 Dependence on supplemental oxygen
CPT/HCPCS: 36415; 71045; 71275; 74177; 80048; 80053; 81003; 81015; 82550; 83605; 83690; 83735; 83880; 84100; 84484; 85025; 85060; 87040; 87086; 93005; 93306; 94760; 96374; 96375; J1650; J1956; J3370; J3370-JW; J3480; J7050; J7512; J7620; Q9967; U0003; U0005

== ENCOUNTER 2022-10-10 17:02 | Inpatient (IN) | payer MEDICARE, OTHER ==
[2022-10-10 18:14] LABS: #Basophils 0.1 thou/uL (0.0-0.2); #Lymphocytes 1.7 thou/uL (1.20-3.40); #Monocytes 0.9 thou/uL (0.11-0.59); #Neutrophils 7.9 thou/uL (1.40-6.50); %Basophils 0.7 % (0.0-1.0); %Eosinophils 0.3 % (0.0-10.0); %Lymphocytes 16.3 % (21.0-51.0); %Monocytes 8.5 % (0.0-10.0); %Neutrophils 74.2 % (42.0-75.0); Hemoglobin 12.3 g/dL (12.0-16.0); Mean Corpuscular HGB CONC 30.8 g/dL (32.0-36.0); Mean Corpuscular Hemoglobin 28.9 pg (27.0-31.0); Mean Corpuscular Volume 93.9 fl (78.0-98.0); Mean Platelet Volume 9.7 fL (7.4-10.4); Platelet Count 220 10x3/uL (130-400); RBC Distribution Width 13.1 % (11.5-14.5); Red Blood Cell (RBC) Count 4.25 mill/uL (4.20-5.40); White Blood Cell (WBC) Count 10.6 10x3/uL (4.8-10.8)
[2022-10-10 18:38] LABS: ALT (SGPT) 19 U/L (8-55); AST (SGOT) 22 U/L (5-34); Albumin 3.7 g/dL (3.4-4.8); Alkaline Phosphatase 101 U/L (40-110); Anion Gap 13 mmol/L (10-20); BUN (Urea Nitrogen) 9 mg/dL (9.8-20.1); Bilirubin, Total 0.3 mg/dL (0.2-1.2); Calc. Creatinine Clearance 0 mL/min (70-130); Calcium 9.2 mg/dL (7.8-10.44); Carbon Dioxide 34 mmol/L (23-31); Chloride 100 mmol/L (98-107); Estimated GFR 102; Globulin 2.5 g/dL (2.4-3.5); Glucose 121 mg/dL (80-115); Potassium 3.5 mmol/L (3.5-5.1); Protein, Total 6.2 g/dL (5.8-8.1); Sodium 143 mmol/L (136-145)
[2022-10-10] MEDS ORDERED: Ondansetron PF 4 MG/2 ML Vial IVP PRN (19:08)
[2022-10-10] MEDS ORDERED: Ipratropium/Albuterol 3 ML NEB NEB PRN (19:08)
[2022-10-10] MEDS ORDERED: Morphine 2 MG/ML VIAL SLOW IVP PRN ×2 (19:08→19:13)
[2022-10-10] MEDS ORDERED: Sodium Chloride 0.9% 1,000 ML IV SCH (19:15)
[2022-10-10] MEDS: Acetaminophen 325 MG TAB PO SCH (19:15)
[2022-10-10] MEDS ORDERED: Acetaminophen 500 MG TAB PO SCH (19:15)
[2022-10-10] MEDS ORDERED: Morphine 4 MG/ML VIAL ONE (19:32)
[2022-10-10] MEDS ORDERED: Famotidine/PF 20 mg/2ml Vial SLOW IVP SCH (21:00)
[2022-10-10] MEDS: traMADol HCl 50 MG TAB PO PRN (22:31)
[2022-10-10] MEDS: Senokot S 8.6-50 MG TAB PO SCH (22:31)
[2022-10-10] MEDS ORDERED: Genteal 0.3% 3.5ml GEL EA EYE PRN (23:10)
[2022-10-10] MEDS ORDERED: Mometasone/Formoterol 200/5 60 PUFF INH PRN (23:37)
[2022-10-11] MEDS: traMADol HCl 50 MG TAB PO SCH ×4 (00:05→18:27)
[2022-10-11] MEDS: Acetaminophen 325 MG TAB PO SCH ×4 (01:15→21:55)
[2022-10-11 01:24] VITALS: BMI 22.9
[2022-10-11 02:00] LABS: SARS-CoV-2 NAA Rapid Test Not Detected (NotDetected)
[2022-10-11] MEDS: Mometasone/Formoterol 200/5 60 PUFF INH SCH ×2 (07:05→19:43)
[2022-10-11 07:33] LABS: INR-International Normal Ratio 1.1; Prothrombin Time 14.3 sec (12.0-14.7)
[2022-10-11 07:34] LABS: Anion Gap 11 mmol/L (10-20); BUN (Urea Nitrogen) 12 mg/dL (9.8-20.1); Calc. Creatinine Clearance 98 mL/min (70-130); Calcium 8.6 mg/dL (7.8-10.44); Carbon Dioxide 32 mmol/L (23-31); Chloride 103 mmol/L (98-107); Estimated GFR 104; Glucose 88 mg/dL (80-115); PTT 35.5 sec (22.9-36.1); Potassium 3.7 mmol/L (3.5-5.1); Sodium 142 mmol/L (136-145)
[2022-10-11 07:36] LABS: Hemoglobin 10.4 g/dL (12.0-16.0); Mean Corpuscular HGB CONC 31.5 g/dL (32.0-36.0); Mean Corpuscular Hemoglobin 29.9 pg (27.0-31.0); Mean Corpuscular Volume 94.9 fl (78.0-98.0); Mean Platelet Volume 9.5 fL (7.4-10.4); Platelet Count 179 10x3/uL (130-400); Red Blood Cell (RBC) Count 3.47 mill/uL (4.20-5.40); White Blood Cell (WBC) Count 5.4 10x3/uL (4.8-10.8)
[2022-10-11] MEDS ORDERED: Multivitamin W/ Minerals 1 TAB PO SCH (09:00)
[2022-10-11 11:03] LABS: Eosinophils 1 % (0-10); Lymphocytes 33 % (21-51); MDiff Complete? YES; Monocytes 14 % (0-10); Neutrophil 51 % (42-75); Platelet Morphology Comment Appears Adequate; Polychromasia SLIGHT = 2-3 cells (100X) (0-2/hpf)
[2022-10-11] MEDS: Famotidine 20 MG TAB PO SCH (11:03)
[2022-10-11] MEDS: DULoxetine 20 MG CAP PO SCH ×2 (11:03→21:53)
[2022-10-11] MEDS: Senokot S 8.6-50 MG TAB PO SCH ×2 (11:05→21:53)
[2022-10-11] MEDS: Polyethylene Glycol 3350 17 GM Packet PO SCH (11:05)
[2022-10-11] MEDS: Multivit, Therapeutic 1 TAB PO SCH (11:05)
[2022-10-11] MEDS ORDERED: FENTANYL 50 MCG/ML 1 ML VIAL SLOW IVP SCH (11:15)
[2022-10-11] MEDS ORDERED: Benzonatate 100 MG CAP PO PRN (11:59)
[2022-10-11] MEDS ORDERED: Ipratropium/Albuterol 3 ML NEB NEB PRN (11:59)
[2022-10-11] MEDS: Ipratropium/Albuterol 3 ML NEB NEB SCH ×2 (13:53→19:42)
[2022-10-11] MEDS: Cyclobenzaprine 10 MG TAB PO PRN ×2 (16:00→21:53)
[2022-10-11] MEDS: traMADol HCl 50 MG TAB PO PRN (18:28)
[2022-10-11] MEDS ORDERED: Montelukast Sodium 10 mg Tablet PO SCH (21:00)
[2022-10-11] MEDS ORDERED: Melatonin 3 MG TAB PO SCH (21:00)
[2022-10-12] MEDS: traMADol HCl 50 MG TAB PO SCH ×3 (01:30→13:57)
[2022-10-12] MEDS: Acetaminophen 325 MG TAB PO SCH ×3 (03:09→14:52)
[2022-10-12] MEDS: traMADol HCl 50 MG TAB PO PRN ×2 (04:34→10:52)
[2022-10-12 06:12] LABS: Hemoglobin 10.6 g/dL (12.0-16.0)
[2022-10-12] MEDS: Mometasone/Formoterol 200/5 60 PUFF INH SCH (06:46)
[2022-10-12] MEDS: Ipratropium/Albuterol 3 ML NEB NEB SCH ×3 (06:49→14:35)
[2022-10-12] MEDS: Cyclobenzaprine 10 MG TAB PO PRN (06:57)
[2022-10-12] MEDS: Famotidine 20 MG TAB PO SCH (10:50)
[2022-10-12] MEDS: Multivit, Therapeutic 1 TAB PO SCH (10:50)
[2022-10-12] MEDS: DULoxetine 20 MG CAP PO SCH (10:50)
[2022-10-12] MEDS: Polyethylene Glycol 3350 17 GM Packet PO SCH (10:51)
[2022-10-12] MEDS: Senokot S 8.6-50 MG TAB PO SCH (11:03)
[2022-10-12 11:34] VITALS: BP 136/71; TEMP 97.5
== END 2022-10-12 15:44 | DRG 563 ==
LOC: ERS 17:02 → SJJU 19:08
PROVIDERS: ADMIT Surgery; ATTEND Surgery
PROC: 2W3LX1Z Immobilization of Right Lower Extremity using Splint (ICD-10-PCS; principal; 2022-10-10)
DX: S82.241A Displaced spiral fracture of shaft of right tibia, initial encounter for closed fracture (principal); I10 Essential (primary) hypertension; J45.909 Unspecified asthma, uncomplicated; F41.9 Anxiety disorder, unspecified; I25.10 Atherosclerotic heart disease of native coronary artery without angina pectoris; K21.9 Gastro-esophageal reflux disease without esophagitis; F32.A Depression, unspecified; S82.831A Other fracture of upper and lower end of right fibula, initial encounter for closed fracture; W05.0XXA Fall from non-moving wheelchair, initial encounter; Z20.822 Contact with and (suspected) exposure to COVID-19; Z88.1 Allergy status to other antibiotic agents; Z88.8 Allergy status to other drugs, medicaments and biological substances; Z86.73 Personal history of transient ischemic attack (TIA), and cerebral infarction without residual deficits; Z79.899 Other long term (current) drug therapy; Z95.1 Presence of aortocoronary bypass graft; Z98.890 Other specified postprocedural states; Y92.129 Unspecified place in nursing home as the place of occurrence of the external cause
CPT/HCPCS: 29505; 36415; 70450; 71045; 72125; 72170; 80048; 80053; 85014; 85018; 85025; 85610; 85730; 94640; 96374; J1650; J2270; J3010; J7050; J7620; S0028; U0002

== ENCOUNTER 2023-04-11 18:17 | Emergency (ER) | payer OTHER ==
[2023-04-11] MEDS ORDERED: Acetaminophen 500 MG TAB ONE (18:37)
== END 2023-04-11 22:34 | disposition home or self-care (01) ==
LOC: ERS 18:17
DX: S00.83XA Contusion of other part of head, initial encounter (principal); S83.91XA Sprain of unspecified site of right knee, initial encounter; I10 Essential (primary) hypertension; Z79.899 Other long term (current) drug therapy; W18.30XA Fall on same level, unspecified, initial encounter
CPT/HCPCS: 70450; 70486; 72125; 93005

== ENCOUNTER 2023-06-09 19:05 | Inpatient (IN) | payer OTHER ==
[~2023-06-09 19:05] MED LIST changes: -Iopamidol-370 76% 500 ML 1 ML ONE; +Iopamidol-370 76% 500 ML MDV (1 ML CHARGE) ONE
[2023-06-09] MEDS ORDERED: Ipratropium/Albuterol 3 ML NEB ONE (19:22)
[2023-06-09 19:38] LABS: #Eosinphils 0.1 thou/uL (0.0-0.7); #Monocytes 0.9 thou/uL (0.11-0.59); #Neutrophils 9.6 thou/uL (1.40-6.50); %Basophils 0.3 % (0.0-1.0); %Eosinophils 0.6 % (0.0-10.0); %Monocytes 7.7 % (0.0-10.0); %Neutrophils 81.1 % (42.0-75.0); Hematocrit 40.3 % (36.0-47.0); Hemoglobin 12.6 g/dL (12.0-16.0); Mean Corpuscular HGB CONC 31.3 g/dL (32.0-36.0); Mean Corpuscular Hemoglobin 28.2 pg (27.0-31.0); Mean Corpuscular Volume 90.2 fl (78.0-98.0); Mean Platelet Volume 10.8 fL (7.4-10.4); Platelet Count 185 10x3/uL (130-400); RBC Distribution Width 13.8 % (11.5-14.5); Red Blood Cell (RBC) Count 4.47 mill/uL (4.20-5.40); White Blood Cell (WBC) Count 11.8 10x3/uL (4.8-10.8)
[2023-06-09 19:55] LABS: ALT (SGPT) 21 U/L (8-55); AST (SGOT) 21 U/L (5-34); Albumin 4.6 g/dL (3.4-4.8); Alkaline Phosphatase 136 U/L (40-110); Anion Gap 13 mmol/L (10-20); BUN (Urea Nitrogen) 8 mg/dL (9.8-20.1); Bilirubin, Total 0.4 mg/dL (0.2-1.2); Calc. Creatinine Clearance 0 mL/min (70-130); Calcium 9.7 mg/dL (7.8-10.44); Carbon Dioxide 32 mmol/L (23-31); Chloride 94 mmol/L (98-107); Estimated GFR 101; Globulin 2.5 g/dL (2.4-3.5); Glucose 104 mg/dL (80-115); Potassium 3.9 mmol/L (3.5-5.1); Protein, Total 7.1 g/dL (5.8-8.1); Sodium 135 mmol/L (136-145)
[2023-06-09] MEDS ORDERED: LevoFLOXacin 750 mg/D5W 150 ml Premix Bag ONE (20:27)
[2023-06-09] MEDS ORDERED: Ondansetron PF 4 MG/2 ML Vial ONE (20:27)
[2023-06-09 20:40] LABS: SARS-CoV-2 NAA Rapid Test Not Detected (NotDetected)
[2023-06-09 20:53] LABS: Bilirubin Negative (Negative); Blood, Urine Negative (Negative); Clarity Clear (Clear); Glucose, Urine (Dipstick) Normal (Negative); Ketone, Urine Trace mg/dL (Negative); Leukocyte 25 Leu/uL (Negative); Nitrite Negative (Negative); Protein, Urine (Dipstick) Negative (Neg-Trace); Specific Gravity, Urine 1.016 (1.002-1.036); Urobilinogen Normal mg/dL (Less than 2)
[2023-06-09] MEDS ORDERED: Acetaminophen 325 MG TAB PO PRN (20:59)
[2023-06-09] MEDS ORDERED: Ondansetron PF 4 MG/2 ML Vial IVP PRN (20:59)
[2023-06-09 21:03] LABS: CAUTI Indications for Culture Pelvic or flank pain; RBC/HPF 0-3 HPF (0-3); Squamous Epithelial 0-3 HPF (0-3)
[2023-06-09] MEDS ORDERED: Ipratropium/Albuterol 3 ML NEB EZPAP PRN (21:03)
[2023-06-09 21:04] LABS: Bacteria/HPF Rare-Few HPF (None Seen)
[2023-06-09 21:05] LABS: Urine Culture Reflex No No
[2023-06-09] MEDS: Ipratropium/Albuterol 3 ML NEB NEB SCH (22:17)
[2023-06-09 22:22] LABS: Actual Bicarbonate (HCO3a) 30.4 mEq/L (22-28); Base Excess (BEa) 4.8 mEq/L (-2.0 to +3.0); CO2 Tension 49.9 mmHg (35.0-45.0); Calcium, Ionized (arterial) 1.16 mmol/L (1.12-1.30); Carboxyhemoglobin (COHb) 0.7 gm% (0.0-3.0); Hematocrit-ABG 35 % (36.0-47.0); Hemoglobin (Hb) 11.9 g/dL (12.0-16.0); Potassium - ABG Lab 3.99 mmol/L (3.70-5.30); pH, Arterial 7.403 (7.35-7.45)
[2023-06-10] MEDS ORDERED: Pantoprazole 40 MG VIAL IVP SCH (00:15)
[2023-06-10] MEDS ORDERED: Sodium Chloride 0.9% 1,000 ML IV SCH (00:30)
[2023-06-10] MEDS ORDERED: Pantoprazole 40 MG VIAL ONE (00:46)
[2023-06-10] MEDS ORDERED: Ondansetron PF 4 MG/2 ML Vial ONE (00:46)
[2023-06-10] MEDS: Ipratropium/Albuterol 3 ML NEB NEB SCH ×6 (02:08→22:42)
[2023-06-10 04:20] VITALS: BMI 21.9
[2023-06-10] MEDS ORDERED: guaiFENesin ER 600 MG TAB PO SCH ×2 (04:45→21:00)
[2023-06-10 05:19] LABS: Hematocrit 36.8 % (36.0-47.0); Hemoglobin 11.5 g/dL (12.0-16.0); Mean Corpuscular HGB CONC 31.3 g/dL (32.0-36.0); Mean Corpuscular Volume 89.8 fl (78.0-98.0); Mean Platelet Volume 11.5 fL (7.4-10.4); Platelet Count 180 10x3/uL (130-400); RBC Distribution Width 13.9 % (11.5-14.5); White Blood Cell (WBC) Count 10.6 10x3/uL (4.8-10.8)
[2023-06-10 05:25] LABS: Delete Auto Diff?? YES; Manual Diff?? YES
[2023-06-10 05:45] LABS: Anion Gap 16 mmol/L (10-20); BUN (Urea Nitrogen) 7 mg/dL (9.8-20.1); Calc. Creatinine Clearance 87 mL/min (70-130); Carbon Dioxide 27 mmol/L (23-31); Chloride 99 mmol/L (98-107); Estimated GFR 102; Glucose 81 mg/dL (80-115); Potassium 4.1 mmol/L (3.5-5.1); Sodium 138 mmol/L (136-145)
[2023-06-10 05:49] LABS: Anisocytosis SLIGHT = 6-15 cells HPF (0-5); CellaVision Operator ID lab.sh2; Eosinophils 1 % (0-10); Hypochromia SLIGHT = 6-15 cells HPF (0-5); Lymphocytes 4 % (21-51); Macrocytosis SLIGHT = 6-15 cells HPF (0-5); Monocytes 12 % (0-10); Neutrophil 83 % (42-75); Ovalocytes SLIGHT = 2-5 cells HPF (0-1); Platelet Adequacy Comment Platelets Normal; Polychromasia SLIGHT = 2-3 cells HPF (0-2); Total Cell Count 100
[2023-06-10] MEDS ORDERED: Non-Formulary Item 1 EACH (Budesonide-Formoterol [Symbicort 160-4.5] 160 MG/4.5 MG Aer) INH PRN (08:05)
[2023-06-10] MEDS ORDERED: Senokot S 8.6-50 MG TAB ONE (08:47)
[2023-06-10] MEDS ORDERED: Non-Formulary Item 1 EACH (Budesonide/Formoterol Fumarate [Budesonide-Formoterol 160-4.5] INH SCH (09:00)
[2023-06-10] MEDS ORDERED: Lisinopril 10 MG TAB ONE (09:15)
[2023-06-10] MEDS: CO Q-10 CAPSULE 100 MG PO SCH (09:55)
[2023-06-10] MEDS: Ascorbic Acid 500 mg Chewable Tablet PO SCH (09:55)
[2023-06-10] MEDS: Lisinopril 10 MG TAB PO SCH ×2 (09:55→21:14)
[2023-06-10] MEDS: Senokot S 8.6-50 MG TAB PO SCH ×2 (09:55→21:14)
[2023-06-10] MEDS: Fluticasone Propionate Nasal Spray 16 gm Bottle NASAL SCH (09:58)
[2023-06-10] MEDS ORDERED: Ascorbic Acid 500 mg Chewable Tablet ONE (10:08)
[2023-06-10] MEDS ORDERED: GUAIFENESIN SF SOLN 200 MG/10 ML UDCUP ONE (12:57)
[2023-06-10] MEDS ORDERED: Guaifenesin DM 100-10/5 ML UDCUP ONE (13:02)
[2023-06-10] MEDS: Guaifenesin DM 100-10/5 ML UDCUP PO PRN ×2 (13:04→17:26)
[2023-06-10] MEDS ORDERED: LevoFLOXacin 750 MG TAB PO SCH ×2 (19:00)
[2023-06-10] MEDS ORDERED: LevoFLOXacin 500 mg/D5W 500 MG in Premix 1 BAG IVPB SCH (21:00)
[2023-06-10] MEDS ORDERED: Melatonin 3 MG TAB PO SCH (21:00)
[2023-06-10] MEDS ORDERED: Montelukast Sodium 10 mg Tablet PO SCH (21:00)
[2023-06-11] MEDS: Guaifenesin DM 100-10/5 ML UDCUP PO PRN ×2 (00:29→06:17)
[2023-06-11] MEDS: Ipratropium/Albuterol 3 ML NEB NEB SCH ×4 (02:50→13:09)
[2023-06-11 05:06] LABS: #Monocytes 0.8 thou/uL (0.11-0.59); #Neutrophils 7.3 thou/uL (1.40-6.50); %Basophils 0.2 % (0.0-1.0); %Eosinophils 0.3 % (0.0-10.0); %Lymphocytes 10.2 % (21.0-51.0); %Monocytes 8.8 % (0.0-10.0); %Neutrophils 80.2 % (42.0-75.0); Hematocrit 34.6 % (36.0-47.0); Hemoglobin 10.5 g/dL (12.0-16.0); Mean Corpuscular HGB CONC 30.3 g/dL (32.0-36.0); Mean Corpuscular Hemoglobin 28.2 pg (27.0-31.0); Platelet Count 168 10x3/uL (130-400); RBC Distribution Width 13.8 % (11.5-14.5); Red Blood Cell (RBC) Count 3.72 mill/uL (4.20-5.40); White Blood Cell (WBC) Count 9.1 10x3/uL (4.8-10.8)
[2023-06-11 05:35] LABS: Anion Gap 10 mmol/L (10-20); BUN (Urea Nitrogen) 7 mg/dL (9.8-20.1); Calc. Creatinine Clearance 94 mL/min (70-130); Calcium 9.1 mg/dL (7.8-10.44); Carbon Dioxide 34 mmol/L (23-31); Chloride 99 mmol/L (98-107); Estimated GFR 104; Glucose 73 mg/dL (80-115); Potassium 3.8 mmol/L (3.5-5.1); Sodium 139 mmol/L (136-145)
[2023-06-11] MEDS ORDERED: LevoFLOXacin 750 MG TAB PO SCH (06:00)
[2023-06-11 08:36] VITALS: TEMP 97.6
[2023-06-11] MEDS: Fluticasone Propionate Nasal Spray 16 gm Bottle NASAL SCH (10:15)
[2023-06-11] MEDS: Lisinopril 10 MG TAB PO SCH (10:16)
[2023-06-11] MEDS: Senokot S 8.6-50 MG TAB PO SCH (10:16)
[2023-06-11] MEDS: Ascorbic Acid 500 mg Chewable Tablet PO SCH (10:16)
[2023-06-11] MEDS: CO Q-10 CAPSULE 100 MG PO SCH (10:16)
[2023-06-11 10:17] VITALS: BP 121/68
== END 2023-06-11 16:07 | DRG 193 ==
LOC: ERS 19:05 → ERHOLD 21:02 → T4-B 06-10 16:47
PROVIDERS: ADMIT Internal Medicine; ATTEND Emergency Medicine
PROC: 4A033R1 Measurement of Arterial Saturation, Peripheral, Percutaneous Approach (ICD-10-PCS; principal; 2023-06-09)
DX: J18.9 Pneumonia, unspecified organism (principal); J96.21 Acute and chronic respiratory failure with hypoxia; I10 Essential (primary) hypertension; I25.10 Atherosclerotic heart disease of native coronary artery without angina pectoris; Z82.49 Family history of ischemic heart disease and other diseases of the circulatory system; K21.9 Gastro-esophageal reflux disease without esophagitis; Z95.1 Presence of aortocoronary bypass graft; Z79.899 Other long term (current) drug therapy; Z91.012 Allergy to eggs; Z88.8 Allergy status to other drugs, medicaments and biological substances; Z86.73 Personal history of transient ischemic attack (TIA), and cerebral infarction without residual deficits; Z88.1 Allergy status to other antibiotic agents; Z98.890 Other specified postprocedural states; F32.A Depression, unspecified; J44.9 Chronic obstructive pulmonary disease, unspecified; Z11.52 Encounter for screening for COVID-19; K22.89 Other specified disease of esophagus; D72.829 Elevated white blood cell count, unspecified
CPT/HCPCS: 36415; 71045; 71275; 80048; 80053; 81001; 82805; 83605; 83880; 84145; 84484; 85025; 87040; 87070; 87086; 87205; 87633; 93005; 94760; 96365; 96375; C9113; J1650; J1956; J2405; J7050; J7620; Q9967

== ENCOUNTER 2024-04-10 21:34 | Inpatient (IN) | payer OTHER ==
[2024-04-10 22:51] LABS: #Basophils 0.05 10x3/uL (0.0-0.2); #Eosinphils Less than 0.03 10x3/uL (0.0-0.7); %Basophils 0.6 % (0.0-1.0); %Eosinophils 0.2 % (0.0-10.0); %Lymphocytes 18.7 % (21.0-51.0); %Monocytes 13.4 % (0.0-10.0); %Neutrophils 66.8 % (42.0-75.0); Hematocrit 33.9 % (36.0-47.0); Hemoglobin 10.4 g/dL (12.0-16.0); Mean Corpuscular HGB CONC 30.7 g/dL (32.0-36.0); Mean Corpuscular Hemoglobin 27.2 pg (27.0-31.0); Mean Corpuscular Volume 88.7 fL (78.0-98.0); Mean Platelet Volume 11.7 fL (7.4-10.4); Platelet Count 177 10x3/uL (130-400); RBC Distribution Width 13.6 % (11.5-14.5); Red Blood Cell (RBC) Count 3.82 mill/uL (4.20-5.40)
[2024-04-10 23:15] LABS: ALT (SGPT) 18 U/L (8-55); AST (SGOT) 20 U/L (5-34); Albumin 3.6 g/dL (3.4-4.8); Alkaline Phosphatase 117 U/L (40-110); Anion Gap 14 mmol/L (10-20); BUN (Urea Nitrogen) 13 mg/dL (9.8-20.1); Bilirubin, Total 0.4 mg/dL (0.2-1.2); Calc. Creatinine Clearance 0 mL/min (70-130); Calcium 8.9 mg/dL (7.8-10.44); Carbon Dioxide 27 mmol/L (23-31); Chloride 101 mmol/L (98-107); Estimated GFR 100; Globulin 2.5 g/dL (2.4-3.5); Glucose 116 mg/dL (80-115); Magnesium 2.3 mg/dL (1.6-2.6); Potassium 3.3 mmol/L (3.5-5.1); Protein, Total 6.1 g/dL (5.8-8.1); Sodium 139 mmol/L (136-145)
[2024-04-11] MEDS ORDERED: Ondansetron PF 4 MG/2 ML Vial IVP PRN (00:05)
[2024-04-11] MEDS ORDERED: Acetaminophen 650 MG Suppository PR PRN (00:05)
[2024-04-11] MEDS ORDERED: Electrolyte Replacement Protocol FS SCH (00:05)
[2024-04-11] MEDS ORDERED: Acetaminophen/Codeine 30-300mg Tablet PO PRN (00:05)
[2024-04-11] MEDS ORDERED: Ondansetron ODT 4 MG TAB PO PRN (00:05)
[2024-04-11 00:09] LABS: Acetaminophen Less than 10 mcg/mL (Less than 10); Alcohol Less than 10.0 mg/dL (Less than 10); Salicylate Less than 8.0 mg/dL (Less than 8.0)
[2024-04-11] MEDS: Potassium Chloride 20 MEQ TAB PO SCH (04:35)
[2024-04-11] MEDS: Lactated Ringer's 500 ML IV SCH (04:36)
[2024-04-11 05:01] LABS: #Basophils 0.06 10x3/uL (0.0-0.2); %Basophils 1.1 % (0.0-1.0); %Eosinophils 0.7 % (0.0-10.0); %Lymphocytes 29.7 % (21.0-51.0); %Monocytes 16.1 % (0.0-10.0); %Neutrophils 52.2 % (42.0-75.0); Hematocrit 35.4 % (36.0-47.0); Hemoglobin 10.8 g/dL (12.0-16.0); Mean Corpuscular HGB CONC 30.5 g/dL (32.0-36.0); Mean Corpuscular Hemoglobin 26.8 pg (27.0-31.0); Mean Corpuscular Volume 87.8 fL (78.0-98.0); Platelet Count 180 10x3/uL (130-400); RBC Distribution Width 13.7 % (11.5-14.5); Red Blood Cell (RBC) Count 4.03 mill/uL (4.20-5.40)
[2024-04-11 05:18] LABS: ALT (SGPT) 16 U/L (8-55); AST (SGOT) 20 U/L (5-34); Albumin 3.5 g/dL (3.4-4.8); Alkaline Phosphatase 114 U/L (40-110); Anion Gap 13 mmol/L (10-20); BUN (Urea Nitrogen) 12 mg/dL (9.8-20.1); Bilirubin, Total 0.4 mg/dL (0.2-1.2); Calc. Creatinine Clearance 78 mL/min (70-130); Calcium 8.8 mg/dL (7.8-10.44); Carbon Dioxide 29 mmol/L (23-31); Chloride 102 mmol/L (98-107); Estimated GFR 100; Globulin 2.6 g/dL (2.4-3.5); Glucose 92 mg/dL (80-115); Potassium 3.7 mmol/L (3.5-5.1); Protein, Total 6.1 g/dL (5.8-8.1); Sodium 140 mmol/L (136-145)
[2024-04-11] MEDS: Acetaminophen 325 MG TAB PO PRN (06:18)
[2024-04-11] MEDS: Mometasone 200 MCG/Formoterol 5 MCG 120 PUFF INHALER INH SCH (06:30)
[2024-04-11] MEDS: Albuterol 200 PUFF (6.7GM INHALER) INH PRN (06:35)
[2024-04-11] MEDS: Ipratropium/Albuterol 3 ML NEB EZPAP PRN (06:41)
[2024-04-11] MEDS ORDERED: Famotidine 20 MG TAB PO SCH (09:00)
[2024-04-11] MEDS ORDERED: Famotidine/PF 20 mg/2ml Vial SLOW IVP SCH (09:00)
[2024-04-11] MEDS: Ascorbic Acid 500 mg Chewable Tablet PO SCH (09:56)
[2024-04-11] MEDS: Pantoprazole DR 40 MG TAB PO SCH (09:56)
[2024-04-11] MEDS: CO Q-10 CAPSULE 100 MG PO SCH (09:56)
[2024-04-11] MEDS: Lisinopril 10 MG TAB PO SCH (09:56)
[2024-04-11] MEDS: Melatonin 3 MG TAB PO SCH (20:05)
[2024-04-11] MEDS: QUEtiapine 25 MG TAB PO SCH (20:07)
[2024-04-11] MEDS: Montelukast Sodium 10 mg Tablet PO SCH (20:07)
[2024-04-12] MEDS: Lorazepam 2 MG/ML VIAL ONE (00:24)
[2024-04-12 00:36] LABS: Actual Bicarbonate (HCO3a) 30.7 mEq/L (22-28); Base Excess (BEa) 4.3 mEq/L (-2.0 to +3.0); Calcium, Ionized (arterial) 1.15 mmol/L (1.12-1.30); Carboxyhemoglobin (COHb) 0.7 gm% (0.0-3.0); Hematocrit-ABG 33 % (36.0-47.0); Hemoglobin (Hb) 11.2 g/dL (12.0-16.0); Potassium - ABG Lab 3.84 mmol/L (3.70-5.30); pH, Arterial 7.365 (7.35-7.45)
[2024-04-12 00:39] LABS: Puncture Site Right Brachial art
[2024-04-12] MEDS: Lorazepam 2 MG/ML VIAL SLOW IVP SCH ×2 (00:44→02:11)
[2024-04-12 01:43] LABS: ALT (SGPT) 14 U/L (8-55); AST (SGOT) 19 U/L (5-34); Albumin 3.3 g/dL (3.4-4.8); Alkaline Phosphatase 104 U/L (40-110); Anion Gap 17 mmol/L (10-20); BUN (Urea Nitrogen) 10 mg/dL (9.8-20.1); Bilirubin, Total 0.7 mg/dL (0.2-1.2); Calc. Creatinine Clearance 93 mL/min (70-130); Calcium 8.4 mg/dL (7.8-10.44); Carbon Dioxide 21 mmol/L (23-31); Chloride 102 mmol/L (98-107); Estimated GFR 105; Globulin 2.3 g/dL (2.4-3.5); Glucose 74 mg/dL (80-115); Potassium 4.1 mmol/L (3.5-5.1); Protein, Total 5.6 g/dL (5.8-8.1); Sodium 136 mmol/L (136-145)
[2024-04-12 02:36] LABS: Hematocrit 34.9 % (36.0-47.0); Hemoglobin 10.5 g/dL (12.0-16.0); Mean Corpuscular HGB CONC 30.1 g/dL (32.0-36.0); Mean Corpuscular Hemoglobin 27.1 pg (27.0-31.0); Mean Corpuscular Volume 90.2 fL (78.0-98.0); Mean Platelet Volume 11.3 fL (7.4-10.4); Platelet Count 161 10x3/uL (130-400); RBC Distribution Width 13.5 % (11.5-14.5); Red Blood Cell (RBC) Count 3.87 mill/uL (4.20-5.40)
[2024-04-12 02:49] LABS: Influenza A by NAA Not Detected (NotDetected); Influenza B by NAA Not Detected (NotDetected); SARS-CoV-2 NAA Rapid Test Not Detected (NotDetected)
[2024-04-12 03:00] LABS: Anisocytosis SLIGHT = 6-15 cells HPF (0-5); Band 7 % (5-11); Burr Cells SLIGHT = 2-5 cells HPF (0-1); Hypochromia SLIGHT = 6-15 cells HPF (0-5); Large Platelets 5.9 % (0-5); Lymphocytes 5 % (21-51); Macrocytosis SLIGHT = 6-15 cells HPF (0-5); Monocytes 7 % (0-10); Neutrophil 81 % (42-75); Ovalocytes SLIGHT = 2-5 cells HPF (0-1); Platelet Adequacy Comment Platelets Normal; Target Cells SLIGHT = 2-5 cells HPF (0-1); Tear Drops SLIGHT = 2-5 cells HPF (0-1); Vacuoles SLIGHT
[2024-04-12] MEDS: D5 1/2 NS w/10 mEq KCl 1,000 ML/1,000 ML BAG IV SCH (03:25)
[2024-04-12 03:46] LABS: Actual Bicarbonate (HCO3a) 31.4 mEq/L (22-28); Base Excess (BEa) 3.3 mEq/L (-2.0 to +3.0); Carboxyhemoglobin (COHb) 0.2 gm% (0.0-3.0); Hematocrit-ABG 33 % (36.0-47.0); Hemoglobin (Hb) 11.2 g/dL (12.0-16.0); O2 Tension (PaO2), arterial 65.8 mmHg (> 80.0); Potassium - ABG Lab 3.76 mmol/L (3.70-5.30); pH, Arterial 7.289 (7.35-7.45)
[2024-04-12 03:48] LABS: Puncture Site RRAD
[2024-04-12 03:49] LABS: ALV-art Gradient 456.625 mmHg (0-20)
[2024-04-12] MEDS ORDERED: Morphine 2 MG/ML VIAL SLOW IVP PRN (04:56)
[2024-04-12] MEDS: methylPREDNISolone Sod Succ/PF 125 MG/2 ML VIAL IVP SCH (05:15)
[2024-04-12 05:24] VITALS: BMI 21.5
[2024-04-12] MEDS: Acetylcysteine 10% 100 MG/ML (30 ml) SOLN INH SCH (06:58)
[2024-04-12 13:41] LABS: Actual Bicarbonate (HCO3a) 28.5 mEq/L (22-28); Base Excess (BEa) 0.3 mEq/L (-2.0 to +3.0); Calcium, Ionized (arterial) 1.22 mmol/L (1.12-1.30); Carboxyhemoglobin (COHb) 0.4 gm% (0.0-3.0); Hematocrit-ABG 35 % (36.0-47.0); Hemoglobin (Hb) 11.8 g/dL (12.0-16.0); O2 Tension (PaO2), arterial 95.7 mmHg (> 80.0); Potassium - ABG Lab 4.37 mmol/L (3.70-5.30); pH, Arterial 7.268 (7.35-7.45)
[2024-04-12 13:45] LABS: CO2 Tension 63.7 mmHg (35.0-45.0); Puncture Site Right Radial artery
[2024-04-12 13:46] LABS: ALV-art Gradient 181.175 mmHg (0-20)
[2024-04-13 08:25] LABS: CO2 Tension 66.9 mmHg (35.0-45.0)
[2024-04-13 11:00] LABS: #Basophils Less than 0.03 10x3/uL (0.0-0.2); #Eosinphils Less than 0.03 10x3/uL (0.0-0.7); %Basophils 0.1 % (0.0-1.0); %Lymphocytes 9.8 % (21.0-51.0); %Monocytes 12.8 % (0.0-10.0); Hemoglobin 10.1 g/dL (12.0-16.0); Mean Corpuscular HGB CONC 29.7 g/dL (32.0-36.0); Mean Corpuscular Hemoglobin 26.8 pg (27.0-31.0); Mean Corpuscular Volume 90.2 fL (78.0-98.0); Mean Platelet Volume 11.9 fL (7.4-10.4); Platelet Count 177 10x3/uL (130-400); RBC Distribution Width 13.6 % (11.5-14.5); Red Blood Cell (RBC) Count 3.77 mill/uL (4.20-5.40)
[2024-04-13 12:00] LABS: Anion Gap 12 mmol/L (10-20); BUN (Urea Nitrogen) 18 mg/dL (9.8-20.1); Calc. Creatinine Clearance 84 mL/min (70-130); Calcium 9.2 mg/dL (7.8-10.44); Carbon Dioxide 32 mmol/L (23-31); Chloride 100 mmol/L (98-107); Estimated GFR 102; Glucose 111 mg/dL (80-115); Potassium 3.9 mmol/L (3.5-5.1); Sodium 140 mmol/L (136-145)
[2024-04-14 05:52] LABS: Anisocytosis SLIGHT = 6-15 cells HPF (0-5); Band 10 % (5-11); Hypochromia SLIGHT = 6-15 cells HPF (0-5); Large Platelets 4.9 % (0-5); Lymphocytes 4 % (21-51); Microcytosis SLIGHT = 6-15 cells HPF (0-5); Monocytes 10 % (0-10); Neutrophil 77 % (42-75); Ovalocytes SLIGHT = 2-5 cells HPF (0-1); Platelet Adequacy Comment Platelets Decreased; Polychromasia SLIGHT = 2-3 cells HPF (0-2)
[2024-04-14 05:56] LABS: Hematocrit 37.6 % (36.0-47.0); Hemoglobin 11.3 g/dL (12.0-16.0); Mean Corpuscular HGB CONC 30.1 g/dL (32.0-36.0); Mean Corpuscular Hemoglobin 26.5 pg (27.0-31.0); Mean Corpuscular Volume 88.1 fL (78.0-98.0); Mean Platelet Volume 12.8 fL (7.4-10.4); Platelet Count 114 10x3/uL (130-400); RBC Distribution Width 13.6 % (11.5-14.5); Red Blood Cell (RBC) Count 4.27 mill/uL (4.20-5.40)
[2024-04-14 10:00] LABS: Anion Gap 12 mmol/L (10-20); BUN (Urea Nitrogen) 9 mg/dL (9.8-20.1); Calc. Creatinine Clearance 92 mL/min (70-130); Carbon Dioxide 37 mmol/L (23-31); Chloride 98 mmol/L (98-107); Estimated GFR 105; Glucose 141 mg/dL (80-115); Potassium 3.5 mmol/L (3.5-5.1); Sodium 143 mmol/L (136-145)
[2024-04-14] MEDS ORDERED: Potassium Chloride 20 MEQ TAB PO SCH (11:00)
[2024-04-14] MEDS: Potassium Chloride 20 MEQ in Premix 1 BAG IVPB SCH (12:06)
[2024-04-14] MEDS: Vancomycin (BATCH) 1.25 GM in Premix 1 BAG IVPB SCH (14:33)
[2024-04-14] MEDS: LevoFLOXacin 750 mg/D5W 750 MG in Premix 1 BAG IVPB SCH (15:52)
[2024-04-14] MEDS: Melatonin 3 MG TAB PO SCH (20:14)
[2024-04-14] MEDS ORDERED: Vancomycin 1 GM in Sodium Chloride 0.9% 250 ML 250 ML IVPB SCH (21:00)
[2024-04-14] MEDS: Magnesium 2 GM/50 ML(in water) 2 GM in Premix 1 BAG IVPB SCH (22:25)
[2024-04-14] MEDS: Vancomycin HCl 750 MG in Sodium Chloride 0.9% 250 ML 250 ML IVPB SCH (22:26)
[2024-04-15 00:55] LABS: Potassium 3.8 mmol/L (3.5-5.1)
[2024-04-15 05:07] LABS: #Basophils 0.03 10x3/uL (0.0-0.2); %Basophils 0.4 % (0.0-1.0); %Eosinophils 0.5 % (0.0-10.0); %Lymphocytes 11.7 % (21.0-51.0); %Neutrophils 71.9 % (42.0-75.0); Hematocrit 35.5 % (36.0-47.0); Hemoglobin 10.8 g/dL (12.0-16.0); Mean Corpuscular HGB CONC 30.4 g/dL (32.0-36.0); Mean Corpuscular Hemoglobin 26.7 pg (27.0-31.0); Mean Corpuscular Volume 87.9 fL (78.0-98.0); Mean Platelet Volume 12.2 fL (7.4-10.4); Platelet Count 178 10x3/uL (130-400); RBC Distribution Width 13.4 % (11.5-14.5); Red Blood Cell (RBC) Count 4.04 mill/uL (4.20-5.40)
[2024-04-15 05:16] LABS: Anion Gap 15 mmol/L (10-20); BUN (Urea Nitrogen) 6 mg/dL (9.8-20.1); Calc. Creatinine Clearance 87 mL/min (70-130); Calcium 9.2 mg/dL (7.8-10.44); Carbon Dioxide 29 mmol/L (23-31); Chloride 100 mmol/L (98-107); Estimated GFR 104; Glucose 106 mg/dL (80-115); Magnesium 2.5 mg/dL (1.6-2.6); Potassium 4.3 mmol/L (3.5-5.1); Sodium 140 mmol/L (136-145)
[2024-04-15 05:20] LABS: Vancomycin, Random 14.1 ug/mL (See Comment)
[2024-04-16 07:02] LABS: #Basophils 0.06 10x3/uL (0.0-0.2); %Basophils 0.9 % (0.0-1.0); %Eosinophils 0.7 % (0.0-10.0); %Monocytes 17.3 % (0.0-10.0); %Neutrophils 59.1 % (42.0-75.0); Hemoglobin 11.8 g/dL (12.0-16.0); Mean Corpuscular HGB CONC 28.1 g/dL (32.0-36.0); Mean Corpuscular Hemoglobin 26.8 pg (27.0-31.0); Mean Corpuscular Volume 95.2 fL (78.0-98.0); Mean Platelet Volume 11.4 fL (7.4-10.4); Platelet Count 200 10x3/uL (130-400); RBC Distribution Width 13.5 % (11.5-14.5); Red Blood Cell (RBC) Count 4.41 mill/uL (4.20-5.40)
[2024-04-16 07:29] LABS: Anion Gap 12 mmol/L (10-20); BUN (Urea Nitrogen) 5 mg/dL (9.8-20.1); Calc. Creatinine Clearance 92 mL/min (70-130); Calcium 9.6 mg/dL (7.8-10.44); Carbon Dioxide 34 mmol/L (23-31); Chloride 100 mmol/L (98-107); Estimated GFR 105; Glucose 112 mg/dL (80-115); Potassium 4.6 mmol/L (3.5-5.1); Sodium 141 mmol/L (136-145)
[2024-04-16] MEDS: Ipratropium/Albuterol 3 ML NEB EZPAP SCH (14:42)
[2024-04-17 04:40] LABS: Vancomycin, Random 25.2 ug/mL (See Comment)
[2024-04-17] MEDS ORDERED: Ipratropium Bromide 0.06% Nasal Inhaler 15ml EA NARE PRN (19:33)
[2024-04-18] MEDS: Lorazepam 0.5 MG TAB PO SCH ×2 (05:29→20:20)
[2024-04-18] MEDS: Lansoprazole 30 MG/10 ML UDCUP PER TUBE SCH (08:53)
[2024-04-18] MEDS: Fluticasone Propionate Nasal Spray 16 gm Bottle NASAL SCH (08:53)
[2024-04-18] MEDS: Guaifenesin DM 100-10/5 ML UDCUP PO PRN (13:53)
[2024-04-20] MEDS: Magnesium Citrate 300 ML BOT PO SCH (12:49)
[2024-04-21] MEDS: LevoFLOXacin 750 MG TAB PO SCH (05:40)
[2024-04-21 09:46] VITALS: BMI 24.2
[2024-04-22 08:27] VITALS: BP 111/69; TEMP 97.7
[2024-04-22] MEDS: Bisacodyl 10 MG SUPP PR SCH (10:12)
[2024-04-22] MEDS: Polyethylene Glycol 3350 17 GM Packet PO SCH (13:04)
== END 2024-04-22 16:40 | DRG 70 ==
LOC: ERS 21:34 → MSONC 23:46 → OBSVTOIN 04-12 01:23 → IMCU/EMU 04-12 01:35 → T4-A 04-15 16:51
PROVIDERS: ADMIT Student in an Organized Health Care Education/Training Program; ATTEND Family Medicine
PROC: 4A133R1 Monitoring of Arterial Saturation, Peripheral, Percutaneous Approach (ICD-10-PCS; principal; 2024-04-12)
PROC: 5A0935A Assistance with Respiratory Ventilation, Less than 24 Consecutive Hours, High Flow/Velocity Cannula (ICD-10-PCS; 2024-04-12)
PROC: 5A09457 Assistance with Respiratory Ventilation, 24-96 Consecutive Hours, Continuous Positive Airway Pressure (ICD-10-PCS; 2024-04-13)
DX: G93.41 Metabolic encephalopathy (principal); J69.0 Pneumonitis due to inhalation of food and vomit; J96.21 Acute and chronic respiratory failure with hypoxia; J96.22 Acute and chronic respiratory failure with hypercapnia; E87.20 Acidosis, unspecified; Z88.8 Allergy status to other drugs, medicaments and biological substances; Z91.012 Allergy to eggs; Z79.899 Other long term (current) drug therapy; K21.9 Gastro-esophageal reflux disease without esophagitis; Z86.73 Personal history of transient ischemic attack (TIA), and cerebral infarction without residual deficits; Z95.1 Presence of aortocoronary bypass graft; Z82.49 Family history of ischemic heart disease and other diseases of the circulatory system; I10 Essential (primary) hypertension; J45.909 Unspecified asthma, uncomplicated; K22.2 Esophageal obstruction; J44.9 Chronic obstructive pulmonary disease, unspecified; Z66 Do not resuscitate
CPT/HCPCS: 36415; 36416; 36600; 70450; 71045; 74018; 80048; 80053; 80202; 80307; 82565; 82805; 83605; 83735; 83880; 84146; 85025; 87040; 87081; 87149; 93005; 93010; 94640; 94660; 96374; G0378; J1956; J2060; J2919; J3370; J3475; J3480; J7050; J7120; J7608; J7620